=== PATIENT | female | born 1960 | race Hispanic/Latino ===

== ENCOUNTER 2018-09-18 13:23 | Emergency (ER) | payer OTHER ==
--- NOTE | 2018-09-18 19:21 | RAD REPORT ---
EXAM DESCRIPTION: CT - Head Brain Wo Cont - 09/18/2018 7:07 pm CLINICAL HISTORY: Headache COMPARISON: November 2009 TECHNIQUE: Axial 5 mm thick images of the head were obtained without IV contrast. All CT scans are performed using dose optimization technique as appropriate and may include automated exposure control or mA/KV adjustment according to patient size. FINDINGS: No intracranial hemorrhage, mass, edema or shift of mid-line structures. No acute infarcti on changes seen. No abnormal extra-axial fluid collections. Ventricles are normal. 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 These are stable. Mastoid air cells and visualized portions of the paranasal sinuses are clear. No acute bony findings. IMPRESSION: Negative non-contrast CT head examination for acute finding. No significant change from 2009.
[2018-09-18] MEDS ORDERED: DIPHENHYDRAMINE 50 MG/ML VIAL ONE (19:44)
[2018-09-18] MEDS ORDERED: KETOROLAC 30 MG/ML INJ ONE (19:44)
[2018-09-18] MEDS ORDERED: METOCLOPRAMIDE 10 MG/2mL INJ ONE (19:44)
[2018-09-18] MEDS ORDERED: NA CHLORIDE 0.9% 1,000 ML ONE (19:44)
--- NOTE | 2018-09-18 20:29 | ER ---
Nurse's Notes [facility] Name: Jo Tena Age: 57 yrs Sex: Female : 1960 Arrival Date: 09/18/2018 Time: 13:27 Bed 23 Private MD: None, None Diagnosis: Migraine Presentation: 09/18 13:41 Presenting complaint: Patient states: nausea and headache x 3-4 days. pt reports that ss medication helps "a little", but not much. Transition of care: patient was not received from another setting of care. Onset of symptoms was September 15, 2018. Risk Assessment: Do you want to hurt yourself or someone else? Patient reports no desire to harm self or others. Initial Sepsis Screen: Does the patient meet any 2 criteria? No. Patient's initial sepsis screen is negative. Does the patient have a suspected source of infection? No. Patient's initial sepsis screen is negative. Care prior to arrival: None. 13:41 Method Of Arrival: Ambulatory ss 13:41 Acuity: DANE 3 ss Historical: - Allergies: 13:42 No Known Allergies; ss - PMHx: 13:42 GERD; High Cholesterol; Hypertension; ss - Immunization history:: Adult Immunizations up to date. - Social history:: Smoking status: Patient uses tobacco products, < 1/2 ppd. - Ebola Screening: : Patient denies exposure to infectious person Patient denies travel to an Ebola-affected area in the 21 days before illness onset. Assessment: 19:30 General: Appears in no apparent distress. comfortable, Behavior is calm, cooperative, fu Reports nausea and headache 3-4 days ago. Pain: Denies pain. Neuro: Level of Consciousness is awake, alert, obeys commands, Oriented to person, place, time, situation. Respiratory: No deficits noted. Derm: Skin is intact, is healthy with good turgor, Skin is pink, warm \\T\\ dry. Musculoskeletal: No deficits noted. 20:29 Reassessment: Patient is alert, oriented x 3, equal unlabored respirations, skin fu warm/dry/pink. Pain: Denies pain. Neuro: Level of Consciousness is awake, alert, obeys commands, Oriented to person, place, time, situation. Respiratory: No deficits noted. Vital Signs: 13:40 Pulse 82; Resp 16; Temp 97.4(TE); Pulse Ox 99% on R/A; Weight 63.96 kg; Height 5 ft. 5 ss in. (165.10 cm); Pain 8/10; 13:42 BP 167 / 107; ss 19:45 BP 149 / 90; Pulse 70; Temp 98.1; Pulse Ox 100% ; Pain 0/10; fu 20:30 BP 156 / 87; Pulse 59; Temp 98.0; Pulse Ox 100% ; Pain 0/10; fu 21:00 BP 166 / 98; Pulse 66; Pulse Ox 100% on R/A; Pain 0/10; fu 13:40 Body Mass Index 23.46 (63.96 kg, 165.10 cm) ss Alyssa Coma Score: 18:54 Eye Response: spontaneous(4). Verbal Response: oriented(5). Motor Response: obeys kb commands(6). Total: 15. ED Course: 13:27 Patient arrived in ED. mr 13:28 None, None is Private Physician. mr 13:40 Arm band placed on left wrist. ss 13:42 Triage completed. ss 18:24 Charli Mccann LVN is Primary Nurse. em 18:36 [facility] kb 18:36 Dusty Neumann MD is Attending Physician. kb 19:04 CT completed. Patient tolerated procedure well. Patient moved to CT via wheelchair. jg6 Patient moved back from CT. 19:05 CT Head Brain wo Cont In Process Unspecified. EDMS 19:40 Inserted saline lock: 20 gauge in left antecubital area, using aseptic technique. fu 19:43 Keegan Gonzalez, RN is Primary Nurse. fu 20:50 IV discontinued, bleeding controlled. fu Administered Medications: 19:40 Drug: NS 0.9% 1000 ml Route: IV; Rate: 1000 ml; Site: left antecubital; fu 19:43 Drug: Reglan 10 mg Route: IVP; Site: left antecubital; fu 19:43 Drug: Benadryl 12.5 mg Route: IVP; Site: left antecubital; fu 19:43 Drug: TORadol 30 mg Route: IVP; Site: left antecubital; fu Outcome: 20:28 Discharge ordered by . kb 21:04 Discharged to home ambulatory. fu 21:04 Condition: improved 21:04 Discharge instructions given to patient, Instructed on discharge instructions, follow up and referral plans. Demonstrated understanding of instructions. 21:13 Patient left the ED. ea Signatures: Dispatcher [employer] EDBerna Avendano, STOVE FITTER-Sofía STOVE FITTER-Leni Genie Saenz, Charli, LICENSED PLUMBER LICENSED PLUMBER Lyudmila Ceja, RN Elena Mccloud RN Keegan Kim ea, RN RN fu Garcia, Jessica j6 Corrections: (The following items were deleted from the chart) 20:09 20:08 General: Appears in no apparent distress. comfortable, Behavior is calm, fu cooperative, fu
--- NOTE | 2018-09-18 20:29 | EDPHYS ---
Physician Documentation [facility] Name: Jo Tena Age: 57 yrs Sex: Female : 1960 Arrival Date: 09/18/2018 Time: 13:27 Bed 23 Private MD: None, None ED Physician Dusty Neumann HPI: 09/18 18:55 This 57 yrs old Female presents to ER via Ambulatory with complaints of kb Headache, Nausea. 18:55 The patient complains of pain to the right faith. The patient describes the headache kb as constant. Onset: The symptoms/episode began/occurred 3 day(s) ago. Associated signs and symptoms: Pertinent positives:. 20:27 Severity of symptoms: At its worst the pain was moderate, in the emergency department kb the pain is unchanged. Headache History: The patient has had previous headaches and this one is similar to previous episodes. The symptoms are alleviated by nothing. the symptoms are aggravated by lights. The patient has experienced similar episodes in the past, several times. The patient has not recently seen a physician. Pt reports headache to right side of head that started 3 days ago. +nausea. Reports similar headaches in the past, once or twice a week. Historical: - Allergies: 13:42 No Known Allergies; ss - PMHx: 13:42 GERD; High Cholesterol; Hypertension; ss - Immunization history:: Adult Immunizations up to date. - Social history:: Smoking status: Patient uses tobacco products, < 1/2 ppd. - Ebola Screening: : Patient denies exposure to infectious person Patient denies travel to an Ebola-affected area in the 21 days before illness onset. ROS: 18:54 Constitutional: Negative for fever, chills, and weight loss, Cardiovascular: Negative kb for chest pain, palpitations, and edema, Respiratory: Negative for shortness of breath, cough, wheezing, and pleuritic chest pain, Back: Negative for injury and pain, : Negative for injury, bleeding, discharge, and swelling, MS/Extremity: Negative for injury and deformity, Skin: Negative for injury, rash, and discoloration. 18:54 Abdomen/GI: Positive for nausea, Negative for abdominal pain, vomiting, diarrhea, constipation. 18:54 Neuro: Positive for headache. Exam: 18:55 Constitutional: This is a well developed, well nourished patient who is awake, alert, kb and in no acute distress. Head/Face: Normocephalic, atraumatic. ENT: Nares patent. No nasal discharge, no septal abnormalities noted. Tympanic membranes are normal and external auditory canals are clear. Oropharynx with no redness, swelling, or masses, exudates, or evidence of obstruction, uvula midline. Mucous membranes moist. Neck: Trachea midline, no thyromegaly or masses palpated, and no cervical lymphadenopathy. Supple, full range of motion without nuchal rigidity, or vertebral point tenderness. No Meningismus. Chest/axilla: Normal chest wall appearance and motion. Nontender with no deformity. No lesions are appreciated. Cardiovascular: Regular rate and rhythm with a normal S1 and S2. No gallops, murmurs, or rubs. Normal PMI, no JVD. No pulse deficits. Respiratory: Lungs have equal breath sounds bilaterally, clear to auscultation and percussion. No rales, rhonchi or wheezes noted. No increased work of breathing, no retractions or nasal flaring. Abdomen/GI: Soft, non-tender, with normal bowel sounds. No distension or tympany. No guarding or rebound. No evidence of tenderness throughout. Back: No spinal tenderness. No costovertebral tenderness. Full range of motion. Skin: Warm, dry with normal turgor. Normal color with no rashes, no lesions, and no evidence of cellulitis. MS/ Extremity: Pulses equal, no cyanosis. Neurovascular intact. Full, normal range of motion. Neuro: Awake and alert, GCS 15, oriented to person, place, time, and situation. Cranial nerves II-XII grossly intact. Motor strength 5/5 in all extremities. Sensory grossly intact. Cerebellar exam normal. Normal gait. Vital Signs: 13:40 Pulse 82; Resp 16; Temp 97.4(TE); Pulse Ox 99% on R/A; Weight 63.96 kg; Height 5 ft. 5 ss in. (165.10 cm); Pain 8/10; 13:42 BP 167 / 107; ss 19:45 BP 149 / 90; Pulse 70; Temp 98.1; Pulse Ox 100% ; Pain 0/10; fu 20:30 BP 156 / 87; Pulse 59; Temp 98.0; Pulse Ox 100% ; Pain 0/10; fu 21:00 BP 166 / 98; Pulse 66; Pulse Ox 100% on R/A; Pain 0/10; fu 13:40 Body Mass Index 23.46 (63.96 kg, 165.10 cm) ss [place] Coma Score: 18:54 Eye Response: spontaneous(4). Verbal Response: oriented(5). Motor Response: obeys kb commands(6). Total: 15. MDM: 18:36 Patient medically screened. kb 18:54 Data reviewed: vital signs, nurses notes. Data interpreted: Pulse oximetry: on room air kb is 99 %. Interpretation: normal. 20:27 Counseling: I had a detailed discussion with the patient and/or guardian regarding: the kb historical points, exam findings, and any diagnostic results supporting the discharge/admit diagnosis, radiology results, the need for outpatient follow up, a family practitioner, a neurologist, to return to the emergency department if symptoms worsen or persist or if there are any questions or concerns that arise at home. 20:29 ED course: Pt pain free after treatment. kb 09/18 18:40 Order name: CT Head Brain wo Cont; Complete Time: 19:23 kb 09/18 18:40 Order name: IV Start; Complete Time: 19:30 kb Administered Medications: 19:40 Drug: NS 0.9% 1000 ml Route: IV; Rate: 1000 ml; Site: left antecubital; fu 19:43 Drug: Reglan 10 mg Route: IVP; Site: left antecubital; fu 19:43 Drug: Benadryl 12.5 mg Route: IVP; Site: left antecubital; fu 19:43 Drug: TORadol 30 mg Route: IVP; Site: left antecubital; fu Disposition: 09/19 06:18 Co-signature as Attending Physician, Dusty Neumann MD I agree with the assessment and valeri plan of care. Disposition: 09/18/18 20:28 Discharged to Home. Impression: Migraine. - Condition is Stable. - Discharge Instructions: Migraine Headache, [id number]. - Medication Reconciliation Form, Thank You Letter, Antibiotic Education, Prescription Opioid Use form. - Follow up: Private Physician; When: 2 - 3 days; Reason: Recheck today's complaints, Continuance of care, Re-evaluation by your physician. Follow up: Emergency Department; When: As needed; Reason: Worsening of condition. Signatures: [facility]patcher [facility], Berna, SIEBEL CRM DEVELOPER-C SIEBEL CRM DEVELOPER-Dusty Almendarez MD MD cha Smirch, Shelby, RN RN Elena Sneed, Keegan Kim RN, ea, MEREDITH kay Corrections: (The following items were deleted from the chart) 09/18 21:13 20:28 09/18/2018 20:28 Discharged to Home. Impression: Migraine. Condition is Stable. ea Forms are Medication Reconciliation Form, Thank You Letter, Antibiotic Education, Prescription Opioid Use. Follow up: Private Physician; When: 2 - 3 days; Reason: Recheck today's complaints, Continuance of care, Re-evaluation by your physician. Follow up: Emergency Department; When: As needed; Reason: Worsening of condition. kb
[2018-09-18 21:31] VITALS: O2SAT 100
[2018-09-18 21:33] VITALS: TEMP 98
[2018-09-18 21:34] VITALS: BP 166/98
== END 2018-09-18 21:13 | disposition home or self-care (01) ==
LOC: ER 13:23
DX: G43.909 Migraine, unspecified, not intractable, without status migrainosus (principal); K21.9 Gastro-esophageal reflux disease without esophagitis; E78.00 Pure hypercholesterolemia, unspecified; I10 Essential (primary) hypertension; F17.200 Nicotine dependence, unspecified, uncomplicated
CPT/HCPCS: 70450; 96374; 96375; 99284; J2765; J7030

== ENCOUNTER 2019-09-20 10:16 | Emergency (ER) | payer OTHER ==
[2019-09-20] MEDS ORDERED: METOCLOPRAMIDE 10 MG/2mL INJ ONE (12:26)
[2019-09-20] MEDS ORDERED: KETOROLAC 30 MG/ML INJ ONE (12:27)
[2019-09-20] MEDS ORDERED: NA CHLORIDE 0.9% 50 ML IV ONE (12:27)
[2019-09-20] MEDS ORDERED: NA CHLORIDE 0.9% 500 ML ONE (12:28)
[2019-09-20] MEDS ORDERED: DIPHENHYDRAMINE 50 MG/ML VIAL ONE (12:28)
--- NOTE | 2019-09-20 14:15 | ER ---
Nurse's Notes [facility] Name: Jo Tena Age: 58 yrs Sex: Female : 1960 Arrival Date: 09/20/2019 Time: 10:20 Bed 27 Private MD: Diagnosis: Headache Presentation: 09/19 10:37 Chief complaint: Patient states: Coughing, N/V and OJEDA since last night, denies fever. [facility] Coronavirus screen: The patient has NOT traveled to a country currently being monitored by the [facility] within the last 14 days. Proceed with normal triage procedures. Ebola Screen: No symptoms or risks identified at this time. Initial Sepsis Screen: Does the patient meet any 2 criteria? No. Patient's initial sepsis screen is negative. Does the patient have a suspected source of infection? No. Patient's initial sepsis screen is negative. Risk Assessment: Do you want to hurt yourself or someone else? Patient reports no desire to harm self or others. Onset of symptoms was September 19, 2019. Care prior to arrival: None. 10:37 Method Of Arrival: Ambulatory [facility] 10:37 Acuity: DANE 3 [facility] Triage Assessment: 10:40 Headache History: The patient has had previous headaches and this one is similar to 7 previous episodes. General: Appears in no apparent distress. uncomfortable, Behavior is calm, cooperative, appropriate for age. Pain: Complains of pain in OJEDA Pain currently is 9 out of 10 on a pain scale. Quality of pain is described as throbbing, Pain began 1 day ago. Is continuous, Also complains of nausea. Neuro: Level of Consciousness is awake, alert, obeys commands. Cardiovascular: Patient's skin is warm and dry. Respiratory: Airway is patent Respiratory effort is even, unlabored, Respiratory pattern is regular, symmetrical. GI: Reports nausea. Derm: Skin is pink, warm \T\ dry. Historical: - Allergies: 10:40 No Known Allergies; jl7 - Home Meds: 10:40 Lisinopril Oral [Active]; jl7 - PMHx: 10:40 GERD; High Cholesterol; Hypertension; jl7 - Immunization history:: Adult Immunizations not up to date. - Social history:: Smoking status: Patient reports the use of cigarette tobacco products, 2 cigarettes/day. Screenin:00 Abuse screen: Denies threats or abuse. Nutritional screening: No deficits noted. vc Tuberculosis screening: No symptoms or risk factors identified. Fall Risk None identified. Assessment: 12:10 General: Appears in no apparent distress. uncomfortable, ill, Behavior is calm, vc cooperative, appropriate for age. Pain: Complains of pain in right adventism and forehead. Neuro: Level of Consciousness is awake, alert, obeys commands, Oriented to person, place, time, situation, Appropriate for age. Cardiovascular: Capillary refill < 3 seconds Patient's skin is warm and dry. Respiratory: Airway is patent Respiratory effort is even, unlabored, Respiratory pattern is regular, symmetrical. GI: Reports lower abdominal pain, nausea, vomiting. : No signs and/or symptoms were reported regarding the genitourinary system. EENT: No signs and/or symptoms were reported regarding the EENT system. Derm: Skin is intact, is healthy with good turgor, Skin temperature is warm. 13:10 Reassessment: Patient and/or family updated on plan of care and expected duration. Pain vc level reassessed. Patient states feeling better. Patient states symptoms have improved. Vital Signs: 10:37 BP 154 / 104; Pulse 89; Resp 17 S; Temp 98.6(O); Pulse Ox 97% on R/A; Weight 63.96 kg jl7 (R); Pain 9/10; 12:15 BP 149 / 93; Pulse 81; Resp 18; Pulse Ox 100% on R/A; vc 13:15 BP 141 / 87; Pulse 74; Resp 17; Pulse Ox 100% on R/A; vc ED Course: 10:20 Patient arrived in ED. ag5 10:39 Triage completed. jl7 10:40 Arm band placed on right wrist. Patient placed in waiting room, Patient notified of jl7 wait time. 11:53 Duke Mcdowell FNP-C is PHCP. la1 11:53 Sacha Negron MD is Attending Physician. la1 11:54 Suzette Ocampo RN is Primary Nurse. vc 12:06 Duke Mcdowell FNP-C is PHCP. la1 12:10 Patient has correct armband on for positive identification. Bed in low position. Call vc light in reach. Pulse ox on. NIBP on. 12:13 Inserted saline lock: 20 gauge 22 gauge in left antecubital area, using aseptic vc technique. 12:16 Flu Sent. vc 13:29 No provider procedures requiring assistance completed. vc 13:50 IV discontinued, intact, bleeding controlled, No redness/swelling at site. Pressure vc dressing applied. Administered Medications: 12:31 Drug: Benadryl 12.5 mg Route: IVP; Site: left antecubital; vc 13:33 Follow up: Response: No adverse reaction; Pain is decreased vc 12:31 Drug: Reglan 10 mg Route: IVP; Site: left antecubital; vc 13:32 Follow up: Response: No adverse reaction; Pain is decreased vc 12:32 Drug: NS 0.9% 500 ml Route: IV; Rate: bolus; Site: left antecubital; vc 13:33 Follow up: IV Status: Completed infusion; IV Intake: 500ml vc 12:32 Drug: TORadol - Ketorolac 15 mg Route: IVP; Site: left antecubital; vc 13:33 Follow up: Response: No adverse reaction; Pain is decreased vc Intake: 13:33 IV: 500ml; Total: 500ml. vc Outcome: 13:15 Discharge ordered by MD. chaves 13:50 Discharged to home ambulatory. vc 13:50 Condition: improved 13:50 Discharge instructions given to patient, Instructed on discharge instructions, follow up and referral plans. Demonstrated understanding of instructions, follow-up care. 13:50 Patient left the ED. vc Signatures: Duke Mcdowell, SAP PP CONSULTANT-C SAP PP CONSULTANT-Cla1 Carli Booth RN RN jl7 Gaskin, Ajare Suzette Major RN RN vc
--- NOTE | 2019-09-20 14:16 | EDPHYS ---
Physician Documentation [facility] Name: Jo Tena Age: 58 yrs Sex: Female : 1960 Arrival Date: 09/20/2019 Time: 10:20 Bed 27 Private MD: ED Physician Sacha Negron HPI: 09/19 12:22 This 58 yrs old Female presents to ER via Ambulatory with complaints of la1 Headache, Flu Symptoms. 12:22 The patient complains of pain to the forehead and right muslim. The patient describes la1 the headache as throbbing. Onset: The symptoms/episode began/occurred last night. Associated signs and symptoms: Pertinent positives: nausea, vomiting, Pertinent negatives: altered mental status, dizziness, neck stiffness, Photophobia sinus congestion. Severity of symptoms: At its worst the pain was moderate. Headache History: The patient has had previous headaches and this one is similar to previous episodes. The patient has experienced similar episodes in the past, several times. Historical: - Allergies: 10:40 No Known Allergies; jl7 - Home Meds: 10:40 Lisinopril Oral [Active]; jl7 - PMHx: 10:40 GERD; High Cholesterol; Hypertension; jl7 - Immunization history:: Adult Immunizations not up to date. - Social history:: Smoking status: Patient reports the use of cigarette tobacco products, 2 cigarettes/day. ROS: 12:23 Constitutional: Negative for fever, chills, and weight loss, Eyes: Negative for injury, la1 pain, redness, and discharge, ENT: Negative for injury, pain, and discharge, Neck: Negative for injury, pain, and swelling, Cardiovascular: Negative for chest pain, palpitations, and edema, Respiratory: Negative for shortness of breath, cough, wheezing, and pleuritic chest pain. 12:23 Back: Negative for injury and pain, : Negative for injury, bleeding, discharge, and swelling, MS/Extremity: Negative for injury and deformity, Skin: Negative for injury, rash, and discoloration. 12:23 Abdomen/GI: Positive for nausea, vomiting. 12:23 Neuro: Positive for headache. Exam: 12:24 Constitutional: This is a well developed, well nourished patient who is awake, alert, la1 and in no acute distress. Head/Face: Normocephalic, atraumatic. Eyes: Pupils equal round and reactive to light, extra-ocular motions intact. Lids and lashes normal. Conjunctiva and sclera are non-icteric and not injected. Cornea within normal limits. Periorbital areas with no swelling, redness, or edema. ENT: Nares patent. No nasal discharge, no septal abnormalities noted. Tympanic membranes are normal and external auditory canals are clear. Oropharynx with no redness, swelling, or masses, exudates, or evidence of obstruction, uvula midline. Mucous membranes moist. Neck: Trachea midlineSupple, full range of motion without nuchal rigidity, or vertebral point tenderness. No Meningismus. Chest/axilla: Normal chest wall appearance and motion. Nontender with no deformity Cardiovascular: Regular rate and rhythm with a normal S1 and S2. Respiratory: Lungs have equal breath sounds bilaterally, clear to auscultation Abdomen/GI: Soft, non-tender, with normal bowel sounds. No distension or tympany. No guarding or rebound. No evidence of tenderness throughout. MS/ Extremity: Pulses equal, no cyanosis. Neurovascular intact. Full, normal range of motion. 12:24 Neuro: Orientation: is normal, to person, place, time \T\ situation. Mentation: is normal, lucid, able to follow commands, Memory: is normal, Cranial nerves: CN II- XII are normal as tested, visual cortés are intact. extraocular movements are intact, Facial palsy and sensory deficits are absent. Nystagmus is absent. Speech is clear and appropriate. Cerebellar function: no acute changes, normal finger to nose testing, heel to sky testing is normal, Motor: is normal, strength is normal, strength is 5/5 in all extremities, Sensation: is normal, Gait: is steady, Abnormal movements: there are no abnormal movements. Vital Signs: 10:37 BP 154 / 104; Pulse 89; Resp 17 S; Temp 98.6(O); Pulse Ox 97% on R/A; Weight 63.96 kg jl7 (R); Pain 9/10; 12:15 BP 149 / 93; Pulse 81; Resp 18; Pulse Ox 100% on R/A; vc 13:15 BP 141 / 87; Pulse 74; Resp 17; Pulse Ox 100% on R/A; vc MDM: 12:06 Patient medically screened. la1 13:14 Differential diagnosis: herpes zoster, hypertensive headache, migraine, sinusitis, la1 temporal arteritis, tension headache. Data reviewed: vital signs, nurses notes, lab test result(s), and as a result, I will discharge patient. Data interpreted: Pulse oximetry: on room air is 97 %. Interpretation: normal. Counseling: I had a detailed discussion with the patient and/or guardian regarding: the historical points, exam findings, and any diagnostic results supporting the discharge/admit diagnosis, lab results, the need for outpatient follow up, a family practitioner, to return to the emergency department if symptoms worsen or persist or if there are any questions or concerns that arise at home. Medication response: Toradol relieved patient's pain. The symptoms have resolved. Response to treatment: the patient is now symptom free, and as a result, I will discharge patient. Special discussion: Based on the patient's history, exam and DX evaluation, there is no indication for emergent intervention or inpatient TX. It is understood by the patient/guardian that if the SXs persist or worsen they need to return immediately for re-evaluation. 09/19 12:05 Order name: Flu la1 09/19 12:05 Order name: IV; Complete Time: 12:15 la1 Administered Medications: 12:31 Drug: Benadryl 12.5 mg Route: IVP; Site: left antecubital; vc 13:33 Follow up: Response: No adverse reaction; Pain is decreased vc 12:31 Drug: Reglan 10 mg Route: IVP; Site: left antecubital; vc 13:32 Follow up: Response: No adverse reaction; Pain is decreased vc 12:32 Drug: NS 0.9% 500 ml Route: IV; Rate: bolus; Site: left antecubital; vc 13:33 Follow up: IV Status: Completed infusion; IV Intake: 500ml vc 12:32 Drug: TORadol - Ketorolac 15 mg Route: IVP; Site: left antecubital; vc 13:33 Follow up: Response: No adverse reaction; Pain is decreased vc Disposition: 17:21 Co-signature as Attending Physician, Sacha Negron MD I agree with the assessment and kdr plan of care. Disposition: 09/20/19 13:15 Discharged to Home. Impression: Headache. - Condition is Stable. - Discharge Instructions: General Headache Without Cause. - Medication Reconciliation Form, Thank You Letter form. - Follow up: Private Physician; When: As needed; Reason: Recheck today's complaints, Continuance of care, Re-evaluation by your physician. - Problem is new. - Symptoms have improved. Signatures: Dispatcher [employer] EDMS Sacha Negron MD MD kdr [facility]owell, ACID CHANGER-C ACID CHANGER-Cla1 Carli Booth RN RN jl7 Suzette Ocampo RN RN vc Corrections: (The following items were deleted from the chart) 13:50 13:15 09/20/2019 13:15 Discharged to Home. Impression: Headache. Condition is Stable. vc Forms are Medication Reconciliation Form, Thank You Letter, Antibiotic Education, Prescription Opioid Use. Follow up: Private Physician; When: As needed; Reason: Recheck today's complaints, Continuance of care, Re-evaluation by your physician. Problem is new. Symptoms have improved. la1
[2019-09-20 14:40] VITALS: TEMP 98.6
[2019-09-20 14:42] VITALS: O2SAT 100
[2019-09-20 14:44] VITALS: BP 141/87
== END 2019-09-20 13:50 | disposition home or self-care (01) ==
LOC: ER 10:16
DX: R51 Headache (principal); I10 Essential (primary) hypertension; F17.210 Nicotine dependence, cigarettes, uncomplicated
CPT/HCPCS: 96361; 87804 ×2; 96375; 96374; 99284; J2765; J1200; J7040

== ENCOUNTER 2021-07-26 16:35 | Emergency (ER) | payer OTHER ==
[2021-07-26 18:23] LABS: SARS-COV-2 RT PCR NEGATIVE (NEGATIVE)
--- NOTE | 2021-07-26 18:46 | EDPHYS ---
[facility] Name: Jo Tena Age: 60 yrs Sex: Female : 1960 Arrival Date: 07/26/2021 Time: 16:41 Bed 10 Private MD: ED Physician Sacha Negron HPI: 07/26 18:51 This 60 yrs old Female presents to ER via Ambulatory with complaints of kdr Headache, Back Pain. 18:51 Patient has had general flulike symptoms for the past 2 days including headache back kdr pain muscle pain and joint pain. She denies fever.. Onset: The symptoms/episode began/occurred gradually, 2 day(s) ago. Severity of symptoms: At their worst the symptoms were mild moderate just prior to arrival, in the emergency department the symptoms. The patient has not experienced similar symptoms in the past. The patient has not recently seen a physician. Historical: - PMHx: 16:54 GERD; High Cholesterol; Hypertension; jh5 - Immunization history:: Adult Immunizations up to date. - Social history:: Smoking status: Patient reports the use of cigarette tobacco products, smokes one pack cigarettes per day. ROS: 18:51 Constitutional: Negative for fever, chills, and weight loss, Eyes: Negative for injury, kdr pain, redness, and discharge, ENT: Negative for injury, pain, and discharge, Neck: Negative for injury, pain, and swelling, Cardiovascular: Negative for chest pain, palpitations, and edema, : Negative for injury, bleeding, discharge, and swelling, MS/Extremity: Negative for injury and deformity, Skin: Negative for injury, rash, and discoloration, Neuro: Negative for headache, weakness, numbness, tingling, and seizure activity. Psych: Negative for depression, anxiety, suicide ideation, homicidal ideation, and hallucinations, Allergy/Immunology: Negative for hives, rash, and allergies, Endocrine: Negative for neck swelling, polydipsia, polyuria, polyphagia, and marked weight changes, Hematologic/Lymphatic: Negative for swollen nodes, abnormal bleeding, and unusual bruising. 18:51 Respiratory: Positive for cough, with no reported sputum, Negative for dyspnea on exertion, hemoptysis, orthopnea, pleurisy, shortness of breath, sputum production, wheezing. 18:51 Abdomen/GI: Positive for abdominal pain, nausea, abdominal cramps. 18:51 Back: Positive for pain at rest, pain with movement, Generalized myalgias. Exam: 18:51 Constitutional: This is a well developed, well nourished patient who is awake, alert, kdr and in no acute distress. Head/Face: Normocephalic, atraumatic. Eyes: Pupils equal round and reactive to light, extra-ocular motions intact. Lids and lashes normal. Conjunctiva and sclera are non-icteric and not injected. Cornea within normal limits. Periorbital areas with no swelling, redness, or edema. Neck: Trachea midline, no thyromegaly or masses palpated, and no cervical lymphadenopathy. Supple, full range of motion without nuchal rigidity, or vertebral point tenderness. No Meningismus. Chest/axilla: Normal chest wall appearance and motion. Nontender with no deformity. No lesions are appreciated. Cardiovascular: Regular rate and rhythm with a normal S1 and S2. No gallops, murmurs, or rubs. Normal PMI, no JVD. No pulse deficits. Respiratory: Lungs have equal breath sounds bilaterally, clear to auscultation and percussion. No rales, rhonchi or wheezes noted. No increased work of breathing, no retractions or nasal flaring. Abdomen/GI: Soft, non-tender, with normal bowel sounds. No distension or tympany. No guarding or rebound. No evidence of tenderness throughout. Back: No spinal tenderness. No costovertebral tenderness. Full range of motion. Skin: Warm, dry with normal turgor. Normal color with no rashes, no lesions, and no evidence of cellulitis. MS/ Extremity: Pulses equal, no cyanosis. Neurovascular intact. Full, normal range of motion. Neuro: Awake and alert, GCS 15, oriented to person, place, time, and situation. Cranial nerves II-XII grossly intact. Motor strength 5/5 in all extremities. Sensory grossly intact. Cerebellar exam normal. Normal gait. Psych: Awake, alert, with orientation to person, place and time. Behavior, mood, and affect are within normal limits. Vital Signs: 16:49 BP 165 / 114; Pulse 88; Resp 16; Temp 98.7; Pulse Ox 100% ; Weight 61.69 kg; Height 5 jh5 ft. 4 in. (162.56 cm); 19:09 BP 149 / 76; Pulse 80; Resp 16; Pulse Ox 99% on R/A; ab2 16:49 Body Mass Index 23.34 (61.69 kg, 162.56 cm) [facility] MDM: 18:45 Patient medically screened. kdr 18:51 Data reviewed: vital signs, nurses notes, lab test result(s), radiologic studies. kdr Counseling: I had a detailed discussion with the patient and/or guardian regarding: the historical points, exam findings, and any diagnostic results supporting the discharge/admit diagnosis, lab results, radiology results, the need for outpatient follow up. 07/26 16:57 Order name: COVID-19/FLU A+B (Document "Date of Onset" if Symptomatic); Complete Time: [facility] 18:40 Administered Medications: 19:09 Drug: Tylenol 650 mg Route: PO; ab2 19:10 Follow up: Response: No adverse reaction ab2 19:09 Drug: Motrin (ibuprofen) 600 mg Route: PO; ab2 19:10 Follow up: Response: No adverse reaction ab2 Disposition Summary: 07/26/21 18:45 Discharge Ordered Location: Home kdr Problem: new kdr Symptoms: have improved kdr Condition: Stable kdr Diagnosis - Influenza due to identified novel influenza A virus with other respiratory kdr manifestations - Viral intestinal infection, unspecified kdr - Headache kdr Followup: kdr - With: Private Physician - When: 2 - 3 days - Reason: If symptoms return, Further diagnostic work-up, Recheck today's complaints, Continuance of care, Re-evaluation by your physician Discharge Instructions: - Discharge Summary Sheet kdr - General Headache Without Cause kdr - Influenza, Adult, [id number] kdr - Viral Respiratory Infection, [id number] kdr Forms: - Medication Reconciliation Form kdr - Thank You Letter kdr - Work release form iw Prescriptions: - Tamiflu 75 mg Oral Capsule - take 1 tablet by ORAL route every 12 hours for 5 days; 10 tablet; Refills: 0, kdr Product Selection Permitted Signatures: Dispatcher [employer] Sacha Zabala MD MD kdr Barbara Valenzuela RN RN [facility] Zeke Archer ab2
--- NOTE | 2021-07-26 18:46 | ER ---
Nurse's Notes [facility] Name: Jo Tena Age: 60 yrs Sex: Female : 1960 Arrival Date: 07/26/2021 Time: 16:41 Bed 10 Private MD: Diagnosis: Influenza due to identified novel influenza A virus with other respiratory manifestations;Viral intestinal infection, unspecified;Headache Presentation: 07/26 16:49 Chief complaint: Patient states: across the room; pt is able to ambulate independently [facility] without assisstance. Pt states; she has upper back pain, cough, sore throat, headache since 2 days; Pt is supposed to HTN meds but has been out for 2 weeks. Coronavirus screen: Vaccine status: Patient reports receiving the 2nd dose of the covid vaccine. Client denies travel out of the [place] in the last 14 days. Client presents with at least one sign or symptom that may indicate coronavirus-19. Standard/surgical mask placed on the client. Ebola Screen: Patient negative for fever greater than or equal to 101.5 degrees Fahrenheit, and additional compatible Ebola Virus Disease symptoms Patient denies exposure to infectious person. Patient denies travel to an Ebola-affected area in the 21 days before illness onset. Initial Sepsis Screen: Does the patient meet any 2 criteria? No. Patient's initial sepsis screen is negative. Does the patient have a suspected source of infection? No. Patient's initial sepsis screen is negative. Risk Assessment: Do you want to hurt yourself or someone else? Patient reports no desire to harm self or others. Onset of symptoms. 16:49 Method Of Arrival: Ambulatory [facility] 16:49 Acuity: DANE 3 [facility] Triage Assessment: 16:54 Headache History: The patient has had previous headaches and this one is similar to [facility] previous episodes. General: Appears in no apparent distress. comfortable, slender, well groomed, well developed, well nourished, Behavior is calm, cooperative, appropriate for age. Pain: Complains of pain in headache Pain currently is 10 out of 10 on a pain scale. Pain began gradually. Pain: Also complains of cough, chills, bodyaches. Neuro: Level of Consciousness is awake, alert, obeys commands, Oriented to person, place, time, situation, Appropriate for age [employer] are equal bilaterally Moves all extremities. Full function Gait is steady, Speech is normal, Facial symmetry appears normal, Pupils are PERRLA. Historical: - PMHx: 16:54 GERD; High Cholesterol; Hypertension; 5 - Immunization history:: Adult Immunizations up to date. - Social history:: Smoking status: Patient reports the use of cigarette tobacco products, smokes one pack cigarettes per day. Screenin:57 Abuse screen: Denies threats or abuse. Denies injuries from another. Nutritional [facility] screening: No deficits noted. Tuberculosis screening: No symptoms or risk factors identified. Fall Risk None identified. Assessment: 18:00 General: Appears Behavior is calm, cooperative. General: Reports feeling ill for iw fatigue for. Pain: Complains of pain in head. Neuro: Level of Consciousness is awake, alert, obeys commands, Oriented to person, place, time, Moves all extremities. Full function. Cardiovascular: Patient's skin is warm and dry. Respiratory: Respiratory effort is even, unlabored, Respiratory pattern is regular, symmetrical. Derm: Skin is intact, is healthy with good turgor. Musculoskeletal: Range of motion: intact in all extremities. Vital Signs: 16:49 BP 165 / 114; Pulse 88; Resp 16; Temp 98.7; Pulse Ox 100% ; Weight 61.69 kg; Height 5 [facility] ft. 4 in. (162.56 cm); 19:09 BP 149 / 76; Pulse 80; Resp 16; Pulse Ox 99% on R/A; ab2 16:49 Body Mass Index 23.34 (61.69 kg, 162.56 cm) [facility] ED Course: 16:41 Patient arrived in ED. mr 16:54 Triage completed. [facility] 16:54 Arm band placed on right wrist. [facility] 16:57 Patient has correct armband on for positive identification. 5 17:38 Sacha Negron MD is Attending Physician. kdr 18:39 No provider procedures requiring assistance completed. Patient did not have IV access [facility] during this emergency room visit. Administered Medications: 19:09 Drug: Tylenol 650 mg Route: PO; ab2 19:10 Follow up: Response: No adverse reaction ab2 19:09 Drug: Motrin (ibuprofen) 600 mg Route: PO; ab2 19:10 Follow up: Response: No adverse reaction ab2 Outcome: 18:45 Discharge ordered by . kdr 19:09 Discharged to home ambulatory. ab2 19:09 Condition: good 19:09 Discharge instructions given to patient, Instructed on discharge instructions, follow up and referral plans. medication usage, Demonstrated understanding of instructions, follow-up care, medications, Prescriptions given X 1. 19:10 Patient left the ED. ab2 Signatures: Sacha Negron MD MD kdr Rivera, Mary mr Gabi Yoo RN RN Barbara Valenzuela RN RN [facility] Zeke Archer2
[2021-07-26] MEDS ORDERED: ACETAMINOPHEN 325 MG TABLET ONE (19:05)
[2021-07-26] MEDS ORDERED: IBUPROFEN 200 MG TAB PO ONE (19:05)
[2021-07-26 19:17] VITALS: TEMP 98.7
[2021-07-26 19:19] VITALS: BP 149/76; O2SAT 99
== END 2021-07-26 19:10 | disposition home or self-care (01) ==
LOC: ER 16:35
DX: J09.X2 Influenza due to identified novel influenza A virus with other respiratory manifestations (principal); B34.9 Viral infection, unspecified; F17.210 Nicotine dependence, cigarettes, uncomplicated; Z20.822 Contact with and (suspected) exposure to COVID-19
CPT/HCPCS: 0240U; 99283

== ENCOUNTER 2022-09-10 06:13 | Emergency (ER) | payer OTHER ==
--- OUTSIDE RECORDS SUMMARY | 2022-09-10 06:33 | XMS REPORT | Continuity of Care Document ---
:1960 Author Organization [facility] t Address [address] [facility] [address] [place] [id number] Care Team Providers Name Role Phone Goldie Macdonald Primary Care Physician [phone] Problems This patient has no known problems. Allergies, Adverse Reactions, Alerts Allergy Allergy Status Severity Reaction(s) Onset Inactive Treating Comm ents Source Name Type Date Date Clinician Amna - Proprandee Active 2021- Intraven ty to 7-07 ous adverse 00:00: reaction 00 to drug Medications Ordered Filled Start Stop Current Ordering Indication Dosage Frequency Signature Comments Components Source Medication Medication Date Date Medication? Clinician (SIG) Name Name TAKE 1 2021-0 No 10 TABLET 7-07 DAILY. 00:00: 00 TAKE 1 2021-0 No 5 TABLET 7-07 DAILY. 00:00: 00 TAKE 1 2021-0 No 10 TABLET 7-07 DAILY. 00:00: 00 TAKE 1 2021-0 No 5 TABLET 7-07 DAILY. 00:00: 00 prednisone 2020-0 No 1mg 20 mg 9-08 tablet 00:00: 00 azithromyci 2020-0 No mg n 250 mg 9-08 tablet 00:00: 00 Dose 2020-0 No Unknown 9-08 00:00: 00 prednisone 1-0 No 1mg 20 mg 9-08 tablet 00:00: 00 azithromyci 1-0 No mg n 250 mg 9-08 tablet 00:00: 00 Bromfed DM 2020-0 No 5mg/5 2 mg-30 9-08 mL mg-10 mg/5 00:00: mL oral 00 syrup amlodipine 2020-0 No 1mg 5 mg tablet 5-12 00:00: 00 lisinopril 2020-0 No 1mg 10 mg 5-12 tablet 00:00: 00 fenofibrate 2020-0 No 1mg nanocrystal 5-12 lized 145 00:00: mg tablet 00 Dose 2020-0 No Unknown -12 00:00: 00 amlodipine 2020-0 No 1mg 5 mg tablet 5-12 00:00: 00 lisinopril 2020-0 No 1mg 10 mg 5-12 tablet 00:00: 00 fenofibrate 2020-0 No 1mg nanocrystal 5-12 lized 145 00:00: mg tablet 00 metformin 2020-0 No 1mg ER 500 mg 5-12 24 hr 00:00: tablet,exte 00 nded release (gastric) diclofenac 2019-1 No % 1 % topical 1-16 gel 00:00: 00 fenofibrate 2019-1 No 1mg nanocrystal 1-16 lized 145 00:00: mg tablet 00 lisinopril 2019-1 No 1mg 10 mg 1-16 tablet 00:00: 00 amlodipine 2019-1 No 1mg 5 mg tablet 1-16 00:00: 00 loratadine 2019-1 No 1mg 10 mg 1-16 tablet 00:00: 00 metformin 2019-1 No 1mg ER 500 mg 1-16 24 hr 00:00: tablet,exte 00 nded release (gastric) diclofenac 2019-1 No % 1 % topical 1-16 gel 00:00: 00 fenofibrate 2019-1 No 1mg nanocrystal 1-16 lized 145 00:00: mg tablet 00 lisinopril 2019-1 No 1mg 10 mg 1-16 tablet 00:00: 00 amlodipine 2019-1 No 1mg 5 mg tablet 1-16 00:00: 00 loratadine 2019-1 No 1mg 10 mg 1-16 tablet 00:00: 00 metformin 2019-1 No 1mg ER 500 mg 1-16 24 hr 00:00: tablet,exte 00 nded release (gastric) fenofibrate 2019-0 No 1mg nanocrystal 8-26 lized 145 00:00: mg tablet 00 lisinopril 2019-0 No 1mg 10 mg 8-26 tablet 00:00: 00 amlodipine 2019-0 No 1mg 5 mg tablet 8-26 00:00: 00 fenofibrate 2019-0 No 1mg nanocrystal 8-26 lized 145 00:00: mg tablet 00 lisinopril 2020-0 No 1mg 10 mg 8-26 tablet 00:00: 00 amlodipine 2020-0 No 1mg 5 mg tablet 8 00:00: 00 metformin 2020-0 No 1mg ER 500 mg 2-18 24 hr 00:00: tablet,exte 00 nded release (gastric) metformin 2020-0 No 1mg ER 500 mg 2-18 24 hr 00:00: tablet,exte 00 nded release (gastric) amoxicillin 2020-0 No 1mg 500 mg 2-17 capsule 00:00: 00 amoxicillin 2020-0 No 1mg 500 mg 2-17 capsule 00:00: 00 diclofenac 2020-0 No % 1 % topical 2-12 gel 00:00: 00 fenofibrate 2020-0 No 1mg nanocrystal 2-12 lized 145 00:00: mg tablet 00 lisinopril 2020-0 No 1mg 10 mg 2-12 tablet 00:00: 00 amlodipine 2020-0 No 1mg 5 mg tablet 2-12 00:00: 00 diclofenac 2020-0 No % 1 % topical 2-12 gel 00:00: 00 fenofibrate 2020-0 No 1mg nanocrystal 2-12 lized 145 00:00: mg tablet 00 lisinopril 2020-0 No 1mg 10 mg 2-12 tablet 00:00: 00 amlodipine 2020-0 No 1mg 5 mg tablet 2-12 00:00: 00 amoxicillin 2019-1 No 1mg 875 0-16 mg-potassiu 00:00: m 00 clavulanate 125 mg tablet amoxicillin 2019-1 No 1mg 875 0-16 mg-potassiu 00:00: m 00 clavulanate 125 mg tablet amlodipine 2019-0 No 1mg 5 mg tablet 03-06 00:00: 00 lisinopril 2019-0 No 1mg 10 mg 8-27 tablet 00:00: 00 fenofibrate 2019-0 No 1mg nanocrystal 8-27 lized 145 00:00: mg tablet 00 amlodipine 2019-0 No 1mg 5 mg tablet 03-06 00:00: 00 lisinopril 2019-0 No 1mg 10 mg 8-27 tablet 00:00: 00 fenofibrate 2019-0 No 1mg nanocrystal 8-27 lized 145 00:00: mg tablet 00 amlodipine 2019-0 No 1mg 5 mg tablet 5-20 00:00: 00 lisinopril 2019-0 No 1mg 10 mg 5-20 tablet 00:00: 00 amlodipine 2019-0 No 1mg 5 mg tablet 5-20 00:00: 00 lisinopril 2019-0 No 1mg 10 mg 5-20 tablet 00:00: 00 amlodipine 2019-0 No 1mg 5 mg tablet 2-07 00:00: 00 cyclobenzap 2019-0 No 1mg rine 5 mg 2-07 tablet 00:00: 00 amlodipine 2019-0 No 1mg 5 mg tablet 2-07 00:00: 00 cyclobenzap 2019-0 No 1mg rine 5 mg 2-07 tablet 00:00: 00 lisinopril 2019-0 No 1mg 10 mg 1-31 tablet 00:00: 00 lisinopril 2019-0 No 1mg 10 mg 1-31 tablet 00:00: 00 lisinopril 2018-1 No 1mg 10 mg 2-14 tablet 00:00: 00 fenofibrate 2018-1 No 1mg nanocrystal 2-14 lized 145 00:00: mg tablet 00 lisinopril 2018-1 No 1mg 10 mg 2-14 tablet 00:00: 00 lisinopril 2018-1 No 1mg 10 mg 2-14 tablet 00:00: 00 fenofibrate 2018-1 No 1mg nanocrystal 2-14 lized 145 00:00: mg tablet 00 lisinopril 2018-1 No 1mg 10 mg 2-14 tablet 00:00: 00 Vital Signs Vital Name Observation Time Observation Value Comments Source BP Systolic 2022-04-21 15:18:00 154 mm[Hg] BP Diastolic 2022-04-21 15:18:00 92 mm[Hg] Weight Measured 2022-04-21 15:18:00 137.40 pounds Height Measured 2022-04-21 15:18:00 63.58 inches Body Temperature 2022-04-21 15:18:00 98.30 degrees Heart Rate 2022-04-21 15:18:00 71.00 /min Respiratory Rate 2022-04-21 15:18:00 16.00 /min BP Systolic 2022-01-14 10:01:00 189 mm[Hg] BP Diastolic 2022-01-14 10:01:00 114 mm[Hg] Weight Measured 2022-01-14 10:01:00 137.60 pounds Height Measured 2022-01-14 10:01:00 63.58 inches Body Temperature 2022-01-14 10:01:00 98.30 degrees Heart Rate 2022-01-14 10:01:00 74.00 /min Respiratory Rate 2022-01-14 10:01:00 BP Systolic 2020-11-19 14:35:00 160 mm[Hg] BP Diastolic 2020-11-19 14:35:00 93 mm[Hg] Weight Measured 2020-11-19 14:35:00 142.80 pounds Height Measured 2020-11-19 14:35:00 63.58 inches Body Temperature 2020-11-19 14:35:00 97.40 degrees Heart Rate 2020-11-19 14:35:00 76.00 /min Respiratory Rate 2020-11-19 14:35:00 16.00 /min BP Systolic 2020-05-19 15:28:00 159 mm[Hg] BP Diastolic 2020-05-19 15:28:00 95 mm[Hg] Weight Measured 2020-05-19 15:28:00 142.60 pounds Height Measured 2020-05-19 15:28:00 60.02 inches Body Temperature 2020-05-19 15:28:00 98.80 degrees Heart Rate 2020-05-19 15:28:00 67.00 /min Respiratory Rate 2020-05-19 15:28:00 17.00 /min BP Diastolic 2019-08-27 16:18:00 81 mm[Hg] Weight Measured 2019-08-27 16:18:00 148.00 pounds Height Measured 2019-08-27 16:18:00 60.02 inches Body Temperature 2019-08-27 16:18:00 98.50 degrees Heart Rate 2019-08-27 16:18:00 78.00 /min Respiratory Rate 2019-08-27 16:18:00 20.00 /min BP Systolic 2019-08-27 16:18:00 163 mm[Hg] BP Systolic 2019-08-22 16:32:00 157 mm[Hg] BP Diastolic 2019-08-22 16:32:00 96 mm[Hg] Weight Measured 2019-08-22 16:32:00 148.40 pounds Height Measured 2019-08-22 16:32:00 60.02 inches Body Temperature 2019-08-22 16:32:00 98.10 degrees Heart Rate 2019-08-22 16:32:00 72.00 /min Respiratory Rate 2019-08-22 16:32:00 BP Systolic 2019-04-25 08:53:00 158 mm[Hg] BP Diastolic 2019-04-25 08:53:00 105 mm[Hg] Weight Measured 2019-04-25 08:53:00 140.00 pounds Height Measured 2019-04-25 08:53:00 60.02 inches Body Temperature 2019-04-25 08:53:00 99.50 degrees Heart Rate 2019-04-25 08:53:00 65.00 /min Respiratory Rate 2019-04-25 08:53:00 17.00 /min BP Systolic 2019-03-06 08:32:00 154 mm[Hg] BP Diastolic 2019-03-06 08:32:00 105 mm[Hg] Weight Measured 2019-03-06 08:32:00 145.60 pounds Height Measured 2019-03-06 08:32:00 60.02 inches Body Temperature 2019-03-06 08:32:00 99.10 degrees Heart Rate 2019-03-06 08:32:00 80.00 /min Respiratory Rate 2019-03-06 08:32:00 16.00 /min BP Systolic 2019-03-06 08:17:00 154 mm[Hg] BP Diastolic 2019-03-06 08:17:00 105 mm[Hg] Weight Measured 2019-03-06 08:17:00 145.60 pounds Height Measured 2019-03-06 08:17:00 60.02 inches Body Temperature 2019-03-06 08:17:00 99.10 degrees Heart Rate 2019-03-06 08:17:00 80.00 /min Respiratory Rate 2019-03-06 08:17:00 16.00 /min BP Systolic 2018-11-24 12:16:00 180 mm[Hg] BP Diastolic 2018-11-24 12:16:00 106 mm[Hg] Weight Measured 2018-11-24 12:16:00 142.60 pounds Height Measured 2018-11-24 12:16:00 60.02 inches Body Temperature 2018-11-24 12:16:00 98.10 degrees Heart Rate 2018-11-24 12:16:00 65.00 /min Respiratory Rate 2018-11-24 12:16:00 17.00 /min BP Systolic 2018-08-17 09:01:00 152 mm[Hg] BP Diastolic 2018-08-17 09:01:00 97 mm[Hg] Weight Measured 2018-08-17 09:01:00 140.40 pounds Height Measured 2018-08-17 09:01:00 60.02 inches Body Temperature 2018-08-17 09:01:00 98.90 degrees Heart Rate 2018-08-17 09:01:00 67.00 /min Respiratory Rate 2018-08-17 09:01:00 16.00 /min Procedures This patient has no known procedures. Plan of Care Planned Activity Planned Date Details Comments Source Goal Plan of Care Note [code = 77035-7] Goal Plan of Care Note [code = 92425-9] Goal Plan of Care Note [code = 92115-8] Goal Plan of Care Note [code = 21439-7] Goal Plan of Care Note [code = 17285-3] Goal Plan of Care Note [code = 75188-9] Goal Plan of Care Note [code = 54796-5] Goal Plan of Care Note [code = 27138-7] Goal Plan of Care Note [code = 75315-0] Goal Plan of Care Note [code = 40777-3] Goal Plan of Care Note [code = 43017-3] Goal Plan of Care Note [code = 21147-7] Goal Plan of Care Note [code = 56399-0] Goal Plan of Care Note [code = 49123-3] Goal Plan of Care Note [code = 13718-1] Goal Plan of Care Note [code = 49934-0] Goal Plan of Care Note [code = 62293-7] Goal Plan of Care Note [code = 70442-8] Goal Plan of Care Note [code = 68384-2] Goal Plan of Care Note [code = 94884-2] Goal Plan of Care Note [code = 39734-3] Goal Plan of Care Note [code = 60798-7] Goal Plan of Care Note [code = 19349-9] Goal Plan of Care Note [code = 25913-5] Goal Plan of Care Note [code = 24205-6] Goal Plan of Care Note [code = 41043-7] Goal Plan of Care Note [code = 59838-2] Goal Plan of Care Note [code = 49993-7] Goal Plan of Care Note [code = 56919-2] Goal Plan of Care Note [code = 71957-5] Goal Plan of Care Note [code = 62936-0] Goal Plan of Care Note [code = 26680-4] Goal Plan of Care Note [code = 47532-9] Goal Plan of Care Note [code = 97099-7] Goal Plan of Care Note [code = 96364-1] Goal Plan of Care Note [code = 61358-5] Goal Plan of Care Note [code = 15409-3] Goal Plan of Care Note [code = 24377-7] Goal Plan of Care Note [code = 70857-5] Goal Plan of Care Note [code = 97782-4] Goal Plan of Care Note [code = 08049-2] Goal Plan of Care Note [code = 10665-1] Goal Plan of Care Note [code = 60337-1] Goal Plan of Care Note [code = 53927-6] Goal Plan of Care Note [code = 10599-2] Goal Plan of Care Note [code = 50189-9] Goal Plan of Care Note [code = 43164-1] Goal Plan of Care Note [code = 84729-3] Goal Plan of Care Note [code = 76967-6] Goal Plan of Care Note [code = 48909-0] Goal Plan of Care Note [code = 45771-9] Goal Plan of Care Note [code = 06488-3] Goal Plan of Care Note [code = 62766-3] Goal Plan of Care Note [code = 90404-9] Goal Plan of Care Note [code = 45069-9] Goal Plan of Care Note [code = 19274-4] Goal Plan of Care Note [code = 96213-3] Goal Plan of Care Note [code = 46301-6] Goal Plan of Care Note [code = 91160-1] Encounters Start End Encounter Admission Attending Care Care Encounter Source Date/Time Date/Time Type Type Clinicians Facility Department ID 2022-04-22 2022-04-22 Outpatient [facility] [id number] Johnathon 08:23:48 08:23:48 1013 F Alirio 2022-04-21 2022-04-21 Outpatient [facility] [id number] Johnathon 15:07:16 15:07:16 1012 F Alirio 2022-04-21 2022-04-21 Outpatient [id number] 00:00:00 00:00:00 Visit [id number] [id number] 2022-01-14 2022-01-14 Outpatient [id number]- [id number] 00:00:00 00:00:00 Visit 21c0-105r [id number]-7 -[id number] 7mdgaz78v acc08e Results Test Description Test Time Test Comments Results Result Comments Source TSH, THIRD GENERATION 2022-04-23 06:50:25 Test Item Value Reference Range Interpretation Comme nts TSH, THIRD GENERATION (test 1.960 UIU/ML 0.400-4.100 UNLESS OTHERWISE INDICATED, code = 2821) ALL TESTING PER FORMED ATCLINICAL PATH [facility], [place] [address] 24 LOG SCALER: Sb CHIN [id number] [place] [id number] HEMOGLOBIN [id number] 06:04:37 Test Item Value Reference Range Interpretation Comments HEMOGLOBIN A1c (test 6.7 % 4.2-5.6 H AMERIC AN DIABETES code = 73839) ASSOCIATION IDELINES FOR HGB A1C: PREDIABETES/INC REASED RISK . . . . . . . 5.7 -6.4% DIAGNOSIS OF DI ABETES . . . . . . . . . >=6 .5% WITH CONFIRMATION OR APPROPRIATE SYMPTOMS NOTE: ASSAY MAY BE AFFECTED BY HEMOGLOBINOPATH IES (SICKLE CELL ANEMIA, S- C DISEASE, OTHERS) OR JESS FICIALLY LOWERED BY DECR EASED RED CELL SURVIVAL ( HEMOLYTIC ANEMIAS, BLOOD LOSS, ETC.). CONSIDER ALTERN ATE TESTING OR LABORATORY C ONSULTATION. CBC W/AUTO DIFF WITH [id number] 05:12:21 Test Item Value Reference Range Interpretation Comments WBC (test code = 6.8 K/UL 3.5-11.0 1001) RBC (test code = 4.64 M/UL 3.80-5.40 1002) HEMOGLOBIN (test code 13.2 G/DL 11.5-15.5 = 1003) HEMATOCRIT (test code 40.7 % 34.0-45.0 = 1004) MCV (test code = 87.7 fL 80.0-99.0 1005) MCH (test code = 28.4 PG 25.0-33.0 1006) MCHC (test code = 32.4 G/DL 31.0-36.0 1007) RDW (test code = 13.4 % 11.5-15.0 1038) NEUTROPHILS (test 58.6 % code = 1008) LYMPHOCYTES (test 33.2 % code = 1010) MONOCYTES (test code 6.0 % = 1011) EOSINOPHILS (test 1.5 % code = 1012) BASOPHILS (test code 0.4 % = 1013) IMMATURE GRANULOCYTES 0.3 % (test code = 1036) NUCLEATED RBCS (test 0.0 /100 WBC'S See_Comment [Aut omated code = 1065) message] The sy stem which generated this result transmitted reference range : 0.0. The refere nce range was not u sed to interpret th is result as normal/abnormal . PLATELET COUNT (test 221 K/UL 130-400 code = 1015) ABSOLUTE NEUTROPHILS 4.01 K/UL 1.50-7.50 (test code = 1066) ABSOLUTE LYMPHOCYTES 2.27 K/UL 1.00-4.00 (test code = 1067) ABSOLUTE MONOCYTES 0.41 K/UL 0.20-1.00 (test code = 1068) ABSOLUTE EOSINOPHILS 0.10 K/UL 0.00-0.50 (test code = 1040) ABSOLUTE BASOPHILS 0.03 K/UL 0.00-0.20 (test code = 1069) ABS IMMATURE 0.02 K/UL 0.00-0.10 GRANULOCYTES (test code = 1020) ABS NUCLEATED RBCS 0.00 K/UL 0.00-0.11 (test code = 30974) LIPID [id number] 03:08:09 Test Item Value Reference Range Interpretation Comments CHOLESTEROL (test 212 MG/DL <200 H code = 2210) TRIGLYCERIDES (test 112 MG/DL <150 code = 2232) HDL CHOLESTEROL (test 56 MG/DL >39 code = 2220) CALC LDL CHOL (test 134 MG/DL <100 H NOTE: C ALCULATED LDL code = 2237) IS BASED ON SHELLEY-GRIFFITH METHOD WHICHINCLUDES ADJUSTABLE TRIGLYCERIDE:VL DL CHOLESTEROL RAT IO.THIS FACTOR VARIES B Y MEASURED TRIGLY CERIDE AND NON-HDLCHOL ESTEROL CONCENTRATIONS WITH INCREASED CALCU LATED LDL SEENIN HIGH ER TRIGLYCERIDE OR LOWER NON-HDL SPECIME NS. FOR MOREINFORMATION , SEE CLIENT ANNOUNCE MENT AT [email or web address] [email or web address] RATIO LDL/HDL 2.39 RATIO <3.22 (test code = 2238) COMPREHENSIVE METABOLIC [id number] 03:08:09 Test Item Value Reference Range Interpretation Comments GLUCOSE (test code = 122 MG/DL 70-99 H 2216) BUN (test code = 12 MG/DL 8-23 2207) CREATININE (test 0.60 MG/DL 0.60-1.30 code = 2214) eGFR (2020 CKD-EPI) 102 >60 (test code = 77359) ML/MIN/1.73 CALC BUN/CREAT (test 20 RATIO 6-28 code = 2235) SODIUM (test code = 144 MEQ/L 740-787 5368) POTASSIUM (test code 4.1 MEQ/L 3.5-5.4 = 222) CHLORIDE (test code 107 MEQ/L 95-107 = 2215) CARBON DIOXIDE (test 25 MEQ/L 19-31 code = 2206) CALCIUM (test code = 9.4 MG/DL 8.5-10.5 2208) PROTEIN, TOTAL (test 6.6 G/DL 6.1-8.3 code = 2229) ALBUMIN (test code = 4.5 G/DL 3.5-5.2 2200) CALC GLOBULIN (test 2.1 G/DL 1.9-3.7 code = 2240) CALC A/G RATIO (test 2.1 RATIO 1.0-2.6 code = 2234) BILIRUBIN, TOTAL 0.5 MG/DL See_Comment [Automated message] (test code = 2207) The [employer] which generated this result transmit tristan reference range : <=1.2. The refe rence range was not u sed to interpret th is result as normal/abnormal . ALKALINE PHOSPHATASE 68 U/L 40-140 (test code = 2204) AST (test code = 14 U/L 9-40 2217) ALT (test code = 10 U/L 5-40 2218) RSV BY [id number] 00:00:00 Test Item Value Reference Range Interpretation Comments RSV BY DFA (test code = 89656) Negative SOURCE (test code = 83650) Not Provided RSV BY [id number] 00:00:00 Test Item Value Reference Range Interpretation Comments RSV BY DFA (test code = 92816) Negative SOURCE (test code = 41398) Not Provided RSV BY [id number] 00:00:00 Test Item Value Reference Range Interpretation Comments RSV BY DFA (test code = 70837) Negative SOURCE (test code = 38902) Not Provided SARS-CoV-2 (COVID-19) by RT-PCR (HIGH RISK)2021-03-21 00:00:00 Test Item Value Reference Range Interpretation Comments SARS-CoV-2 INTERPRETATION (test NEGATIVE code = 50096) SOURCE (test code = 90639) NOT SPECIFIED SARS-CoV-2 (COVID-19) by RT-PCR (HIGH RISK)2021-03-21 00:00:00 Test Item Value Reference Range Interpretation Comments SARS-CoV-2 INTERPRETATION (test NEGATIVE code = 53154) SOURCE (test code = 80533) NOT SPECIFIED SARS-CoV-2 (COVID-19) by RT-PCR (HIGH RISK)2021-03-21 00:00:00 Test Item Value Reference Range Interpretation Comments SARS-CoV-2 INTERPRETATION (test NEGATIVE code = 86547) SOURCE (test code = 63602) NOT SPECIFIED LIPID [id number] 00:00:00 Test Item Value Reference Range Interpretation Comments CHOLESTEROL (test code = 2210) 158 MG/DL TRIGLYCERIDES (test code = 2232) 112 MG/DL HDL CHOLESTEROL (test code = 2220) 51 MG/DL CALC LDL CHOL (test code = 2237) 86 MG/DL RISK RATIO LDL/HDL (test code = 1.69 RATIO 2238) HEMOGLOBIN [id number] 00:00:00 Test Item Value Reference Range Interpretation Comments HEMOGLOBIN A1c (test code = 39827) 6.2 % HEMOGLOBIN [id number] 00:00:00 Test Item Value Reference Range Interpretation Comments HEMOGLOBIN A1c (test code = 48967) 6.2 % HEMOGLOBIN [id number] 00:00:00 Test Item Value Reference Range Interpretation Comments HEMOGLOBIN A1c (test code = 59013) 6.2 % COMPREHENSIVE METABOLIC [id number] 00:00:00 Test Item Value Reference Range Interpretation Comments GLUCOSE (test code = 2217) 118 MG/DL BUN (test code = 2208) 12 MG/DL CREATININE (test code = 2214) 0.55 MG/DL eGFR AMER. (test code 118 ML/MIN/1.73 = 06783) eGFR NON- AMER. (test 102 ML/MIN/1.73 code = 20572) CALC BUN/CREAT (test code = 22 RATIO 2235) SODIUM (test code = 2231) 142 MEQ/L POTASSIUM (test code = 2228) 3.8 MEQ/L CHLORIDE (test code = 2215) 107 MEQ/L CARBON DIOXIDE (test code = 23 MEQ/L 2205) CALCIUM (test code = 2209) 9.2 MG/DL PROTEIN, TOTAL (test code = 6.9 G/DL 2228) ALBUMIN (test code = 2201) 4.4 G/DL CALC GLOBULIN (test code = 2.5 G/DL 0) CALC A/G RATIO (test code = 1.8 RATIO 2234) BILIRUBIN, TOTAL (test code = 0.4 MG/DL 2206) ALKALINE PHOSPHATASE (test 57 U/L code = 2204) AST (test code = 2218) 16 U/L ALT (test code = 2219) 13 U/L COMPREHENSIVE METABOLIC [id number] 00:00:00 Test Item Value Reference Range Interpretation Comments GLUCOSE (test code = 2217) 118 MG/DL BUN (test code = 2208) 12 MG/DL CREATININE (test code = 2214) 0.55 MG/DL eGFR AMER. (test code 118 ML/MIN/1.73 = 59106) eGFR NON- AMER. (test 102 ML/MIN/1.73 code = 33115) CALC BUN/CREAT (test code = 22 RATIO 2235) SODIUM (test code = 2231) 142 MEQ/L POTASSIUM (test code = 2228) 3.8 MEQ/L CHLORIDE (test code = 2215) 107 MEQ/L CARBON DIOXIDE (test code = 23 MEQ/L 2205) CALCIUM (test code = 2209) 9.2 MG/DL PROTEIN, TOTAL (test code = 6.9 G/DL 2228) ALBUMIN (test code = 2201) 4.4 G/DL CALC GLOBULIN (test code = 2.5 G/DL 2239) CALC A/G RATIO (test code = 1.8 RATIO 2233) BILIRUBIN, TOTAL (test code = 0.4 MG/DL 2206) ALKALINE PHOSPHATASE (test 57 U/L code = 2204) AST (test code = 2218) 16 U/L ALT (test code = 2219) 13 U/L [id number] 00:00:00 Test Item Value Reference Range Interpretation Comments TSH, THIRD GENERATION (test code 1.930 UIU/ML = 2821) [id number] 00:00:00 Test Item Value Reference Range Interpretation Comments TSH, THIRD GENERATION (test code 1.930 UIU/ML = 2821) [id number] 00:00:00 Test Item Value Reference Range Interpretation Comments TSH, THIRD GENERATION (test code 1.930 UIU/ML = 2821) CBC W/AUTO [id number] 00:00:00 Test Item Value Reference Range Interpretation Comments WBC (test code = 1001) 7.5 K/UL RBC (test code = 1002) 4.73 M/UL HEMOGLOBIN (test code = 1003) 13.6 G/DL HEMATOCRIT (test code = 1004) 39.9 % MCV (test code = 1005) 84.4 fL MCH (test code = 1006) 28.8 PG MCHC (test code = 1007) 34.1 G/DL RDW (test code = 1038) 12.7 % NEUTROPHILS (test code = 1008) 69.0 % LYMPHOCYTES (test code = 1010) 23.9 % MONOCYTES (test code = 1011) 5.6 % EOSINOPHILS (test code = 1012) 0.8 % BASOPHILS (test code = 1013) 0.4 % IMMATURE GRANULOCYTES (test 0.3 % code = 1036) NUCLEATED RBCS (test code = 0.0 /100WBC'S 1065) PLATELET COUNT (test code = 279 K/UL 1015) ABSOLUTE NEUTROPHILS (test code 5.14 K/UL = 1066) ABSOLUTE LYMPHOCYTES (test code 1.78 K/UL = 1067) ABSOLUTE MONOCYTES (test code = 0.42 K/UL 1068) ABSOLUTE EOSINOPHILS (test code 0.06 K/UL = 1040) ABSOLUTE BASOPHILS (test code = 0.03 K/UL 1069) ABS IMMATURE GRANULOCYTES (test 0.02 K/UL code = 1020) ABS NUCLEATED RBCS (test code = 0.00 K/UL 82477) CBC W/AUTO [id number] 00:00:00 Test Item Value Reference Range Interpretation Comments WBC (test code = 1001) 7.5 K/UL RBC (test code = 1002) 4.73 M/UL HEMOGLOBIN (test code = 1003) 13.6 G/DL HEMATOCRIT (test code = 1004) 39.9 % MCV (test code = 1005) 84.4 fL MCH (test code = 1006) 28.8 PG MCHC (test code = 1007) 34.1 G/DL RDW (test code = 1038) 12.7 % NEUTROPHILS (test code = 1008) 69.0 % LYMPHOCYTES (test code = 1010) 23.9 % MONOCYTES (test code = 1011) 5.6 % EOSINOPHILS (test code = 1012) 0.8 % BASOPHILS (test code = 1013) 0.4 % IMMATURE GRANULOCYTES (test 0.3 % code = 1036) NUCLEATED RBCS (test code = 0.0 /100WBC'S 1065) PLATELET COUNT (test code = 279 K/UL 1015) ABSOLUTE NEUTROPHILS (test code 5.14 K/UL = 1066) ABSOLUTE LYMPHOCYTES (test code 1.78 K/UL = 1067) ABSOLUTE MONOCYTES (test code = 0.42 K/UL 1068) ABSOLUTE EOSINOPHILS (test code 0.06 K/UL = 1040) ABSOLUTE BASOPHILS (test code = 0.03 K/UL 1069) ABS IMMATURE GRANULOCYTES (test 0.02 K/UL code = 1020) ABS NUCLEATED RBCS (test code = 0.00 K/UL 23147) LIPID [id number] 00:00:00 Test Item Value Reference Range Interpretation Comments CHOLESTEROL (test code = 2210) 158 MG/DL TRIGLYCERIDES (test code = 2232) 112 MG/DL HDL CHOLESTEROL (test code = 2220) 51 MG/DL CALC LDL CHOL (test code = 2237) 86 MG/DL RISK RATIO LDL/HDL (test code = 1.69 RATIO 8) HEMOGLOBIN [id number] 00:00:00 Test Item Value Reference Range Interpretation Comments HEMOGLOBIN A1c (test code = 43402) 6.2 % HEMOGLOBIN [id number] 00:00:00 Test Item Value Reference Range Interpretation Comments HEMOGLOBIN A1c (test code = 88353) 6.2 % COMPREHENSIVE METABOLIC [id number] 00:00:00 Test Item Value Reference Range Interpretation Comments GLUCOSE (test code = 2217) 118 MG/DL BUN (test code = 2208) 12 MG/DL CREATININE (test code = 2214) 0.55 MG/DL eGFR AMER. (test code 118 ML/MIN/1.73 = 95425) eGFR NON- AMER. (test 102 ML/MIN/1.73 code = 84000) CALC BUN/CREAT (test code = 22 RATIO 2234) SODIUM (test code = 2231) 142 MEQ/L POTASSIUM (test code = 2228) 3.8 MEQ/L CHLORIDE (test code = 2215) 107 MEQ/L CARBON DIOXIDE (test code = 23 MEQ/L 2205) CALCIUM (test code = 2209) 9.2 MG/DL PROTEIN, TOTAL (test code = 6.9 G/DL 2228) ALBUMIN (test code = 2201) 4.4 G/DL CALC GLOBULIN (test code = 2.5 G/DL 0) CALC A/G RATIO (test code = 1.8 RATIO 2233) BILIRUBIN, TOTAL (test code = 0.4 MG/DL 2206) ALKALINE PHOSPHATASE (test 57 U/L code = 2204) AST (test code = 2218) 16 U/L ALT (test code = 2219) 13 U/L [id number] 00:00:00 Test Item Value Reference Range Interpretation Comments TSH, THIRD GENERATION (test code 1.930 UIU/ML = 2821) [id number] 00:00:00 Test Item Value Reference Range Interpretation Comments TSH, THIRD GENERATION (test code 1.930 UIU/ML = 2821) CBC W/AUTO [id number] 00:00:00 Test Item Value Reference Range Interpretation Comments WBC (test code = 1001) 7.5 K/UL RBC (test code = 1002) 4.73 M/UL HEMOGLOBIN (test code = 1003) 13.6 G/DL HEMATOCRIT (test code = 1004) 39.9 % MCV (test code = 1005) 84.4 fL MCH (test code = 1006) 28.8 PG MCHC (test code = 1007) 34.1 G/DL RDW (test code = 1038) 12.7 % NEUTROPHILS (test code = 1008) 69.0 % LYMPHOCYTES (test code = 1010) 23.9 % MONOCYTES (test code = 1011) 5.6 % EOSINOPHILS (test code = 1012) 0.8 % BASOPHILS (test code = 1013) 0.4 % IMMATURE GRANULOCYTES (test 0.3 % code = 1036) NUCLEATED RBCS (test code = 0.0 /100WBC'S 1065) PLATELET COUNT (test code = 279 K/UL 1015) ABSOLUTE NEUTROPHILS (test code 5.14 K/UL = 1066) ABSOLUTE LYMPHOCYTES (test code 1.78 K/UL = 1067) ABSOLUTE MONOCYTES (test code = 0.42 K/UL 1068) ABSOLUTE EOSINOPHILS (test code 0.06 K/UL = 1040) ABSOLUTE BASOPHILS (test code = 0.03 K/UL 1069) ABS IMMATURE GRANULOCYTES (test 0.02 K/UL code = 1020) ABS NUCLEATED RBCS (test code = 0.00 K/UL 30632) CBC W/AUTO [id number] 00:00:00 Test Item Value Reference Range Interpretation Comments WBC (test code = 1001) 7.5 K/UL RBC (test code = 1002) 4.73 M/UL HEMOGLOBIN (test code = 1003) 13.6 G/DL HEMATOCRIT (test code = 1004) 39.9 % MCV (test code = 1005) 84.4 fL MCH (test code = 1006) 28.8 PG MCHC (test code = 1007) 34.1 G/DL RDW (test code = 1038) 12.7 % NEUTROPHILS (test code = 1008) 69.0 % LYMPHOCYTES (test code = 1010) 23.9 % MONOCYTES (test code = 1011) 5.6 % EOSINOPHILS (test code = 1012) 0.8 % BASOPHILS (test code = 1013) 0.4 % IMMATURE GRANULOCYTES (test 0.3 % code = 1036) NUCLEATED RBCS (test code = 0.0 /100WBC'S 1065) PLATELET COUNT (test code = 279 K/UL 1015) ABSOLUTE NEUTROPHILS (test code 5.14 K/UL = 1066) ABSOLUTE LYMPHOCYTES (test code 1.78 K/UL = 1067) ABSOLUTE MONOCYTES (test code = 0.42 K/UL 1068) ABSOLUTE EOSINOPHILS (test code 0.06 K/UL = 1040) ABSOLUTE BASOPHILS (test code = 0.03 K/UL 1069) ABS IMMATURE GRANULOCYTES (test 0.02 K/UL code = 1020) ABS NUCLEATED RBCS (test code = 0.00 K/UL 58385) CBC W/AUTO [id number] 00:00:00 Test Item Value Reference Range Interpretation Comments WBC (test code = 1001) 7.5 K/UL RBC (test code = 1002) 4.73 M/UL HEMOGLOBIN (test code = 1003) 13.6 G/DL HEMATOCRIT (test code = 1004) 39.9 % MCV (test code = 1005) 84.4 fL MCH (test code = 1006) 28.8 PG MCHC (test code = 1007) 34.1 G/DL RDW (test code = 1038) 12.7 % NEUTROPHILS (test code = 1008) 69.0 % LYMPHOCYTES (test code = 1010) 23.9 % MONOCYTES (test code = 1011) 5.6 % EOSINOPHILS (test code = 1012) 0.8 % BASOPHILS (test code = 1013) 0.4 % IMMATURE GRANULOCYTES (test 0.3 % code = 1036) NUCLEATED RBCS (test code = 0.0 /100WBC'S 1065) PLATELET COUNT (test code = 279 K/UL 1015) ABSOLUTE NEUTROPHILS (test code 5.14 K/UL = 1066) ABSOLUTE LYMPHOCYTES (test code 1.78 K/UL = 1067) ABSOLUTE MONOCYTES (test code = 0.42 K/UL 1068) ABSOLUTE EOSINOPHILS (test code 0.06 K/UL = 1040) ABSOLUTE BASOPHILS (test code = 0.03 K/UL 1069) ABS IMMATURE GRANULOCYTES (test 0.02 K/UL code = 1020) ABS NUCLEATED RBCS (test code = 0.00 K/UL 78612) LIPID [id number] 00:00:00 Test Item Value Reference Range Interpretation Comments CHOLESTEROL (test code = 2210) 158 MG/DL TRIGLYCERIDES (test code = 2232) 112 MG/DL HDL CHOLESTEROL (test code = 2220) 51 MG/DL CALC LDL CHOL (test code = 2237) 86 MG/DL RISK RATIO LDL/HDL (test code = 1.69 RATIO 2238) LIPID [id number] 00:00:00 Test Item Value Reference Range Interpretation Comments CHOLESTEROL (test code = 2210) 150 MG/DL TRIGLYCERIDES (test code = 2232) 106 MG/DL HDL CHOLESTEROL (test code = 2220) 51 MG/DL CALC LDL CHOL (test code = 2237) 80 MG/DL RISK RATIO LDL/HDL (test code = 1.57 RATIO 2238) COMPREHENSIVE METABOLIC [id number] 00:00:00 Test Item Value Reference Range Interpretation Comments GLUCOSE (test code = 2217) 101 MG/DL BUN (test code = 2208) 15 MG/DL CREATININE (test code = 2214) 0.63 MG/DL eGFR AMER. (test code 114 ML/MIN/1.73 = 54687) eGFR NON- AMER. (test 98 ML/MIN/1.73 code = 96337) CALC BUN/CREAT (test code = 24 RATIO 2235) SODIUM (test code = 2231) 145 MEQ/L POTASSIUM (test code = 2228) 3.8 MEQ/L CHLORIDE (test code = 2215) 107 MEQ/L CARBON DIOXIDE (test code = 26 MEQ/L 2205) CALCIUM (test code = 2209) 9.9 MG/DL PROTEIN, TOTAL (test code = 6.6 G/DL 2228) ALBUMIN (test code = 2201) 4.4 G/DL CALC GLOBULIN (test code = 2.2 G/DL 2240) CALC A/G RATIO (test code = 2.0 RATIO 2234) BILIRUBIN, TOTAL (test code = 0.2 MG/DL 2206) ALKALINE PHOSPHATASE (test 52 U/L code = 2204) AST (test code = 2218) 16 U/L ALT (test code = 2219) 12 U/L COMPREHENSIVE METABOLIC [id number] 00:00:00 Test Item Value Reference Range Interpretation Comments GLUCOSE (test code = 2217) 101 MG/DL BUN (test code = 2208) 15 MG/DL CREATININE (test code = 2214) 0.63 MG/DL eGFR AMER. (test code 114 ML/MIN/1.73 = 48722) eGFR NON- AMER. (test 98 ML/MIN/1.73 code = 91339) CALC BUN/CREAT (test code = 24 RATIO 2235) SODIUM (test code = 2231) 145 MEQ/L POTASSIUM (test code = 2228) 3.8 MEQ/L CHLORIDE (test code = 2215) 107 MEQ/L CARBON DIOXIDE (test code = 26 MEQ/L 2205) CALCIUM (test code = 2209) 9.9 MG/DL PROTEIN, TOTAL (test code = 6.6 G/DL 2228) ALBUMIN (test code = 220) 4.4 G/DL CALC GLOBULIN (test code = 2.2 G/DL 2239) CALC A/G RATIO (test code = 2.0 RATIO 2233) BILIRUBIN, TOTAL (test code = 0.2 MG/DL 2206) ALKALINE PHOSPHATASE (test 52 U/L code = 220) AST (test code = 2218) 16 U/L ALT (test code = 2219) 12 U/L HEMOGLOBIN [id number] 00:00:00 Test Item Value Reference Range Interpretation Comments HEMOGLOBIN A1c (test code = 84615) 6.3 % HEMOGLOBIN [id number] 00:00:00 Test Item Value Reference Range Interpretation Comments HEMOGLOBIN A1c (test code = 12631) 6.3 % LIPID [id number] 00:00:00 Test Item Value Reference Range Interpretation Comments CHOLESTEROL (test code = 2210) 150 MG/DL TRIGLYCERIDES (test code = 2232) 106 MG/DL HDL CHOLESTEROL (test code = 2220) 51 MG/DL CALC LDL CHOL (test code = 2237) 80 MG/DL RISK RATIO LDL/HDL (test code = 1.57 RATIO 2238) COMPREHENSIVE METABOLIC [id number] 00:00:00 Test Item Value Reference Range Interpretation Comments GLUCOSE (test code = 2217) 101 MG/DL BUN (test code = 2208) 15 MG/DL CREATININE (test code = 2214) 0.63 MG/DL eGFR AMER. (test code 114 ML/MIN/1.73 = 64696) eGFR NON- AMER. (test 98 ML/MIN/1.73 code = 76398) CALC BUN/CREAT (test code = 24 RATIO 5) SODIUM (test code = 2231) 145 MEQ/L POTASSIUM (test code = 2228) 3.8 MEQ/L CHLORIDE (test code = 2215) 107 MEQ/L CARBON DIOXIDE (test code = 26 MEQ/L 2205) CALCIUM (test code = 2209) 9.9 MG/DL PROTEIN, TOTAL (test code = 6.6 G/DL 2228) ALBUMIN (test code = 2201) 4.4 G/DL CALC GLOBULIN (test code = 2.2 G/DL 2239) CALC A/G RATIO (test code = 2.0 RATIO 2233) BILIRUBIN, TOTAL (test code = 0.2 MG/DL 2206) ALKALINE PHOSPHATASE (test 52 U/L code = 2203) AST (test code = 221) 16 U/L ALT (test code = 2219) 12 U/L HEMOGLOBIN [id number] 00:00:00 Test Item Value Reference Range Interpretation Comments HEMOGLOBIN A1c (test code = 78190) 6.3 % HEMOGLOBIN [id number] 00:00:00 Test Item Value Reference Range Interpretation Comments HEMOGLOBIN A1c (test code = 81582) 6.3 % HEMOGLOBIN [id number] 00:00:00 Test Item Value Reference Range Interpretation Comments HEMOGLOBIN A1c (test code = 31128) 6.3 % LIPID [id number] 00:00:00 Test Item Value Reference Range Interpretation Comments CHOLESTEROL (test code = 2210) 150 MG/DL TRIGLYCERIDES (test code = 2232) 106 MG/DL HDL CHOLESTEROL (test code = 2220) 51 MG/DL CALC LDL CHOL (test code = 2237) 80 MG/DL RISK RATIO LDL/HDL (test code = 1.57 RATIO 2238) SARS-CoV-2 (COVID-19) by RT-PCR (HIGH RISK)2020-02-08 00:00:00 Test Item Value Reference Range Interpretation Comments SARS-CoV-2 INTERPRETATION (test NEGATIVE code = 16279) SOURCE (test code = 34384) NOT SPECIFIED SARS-CoV-2 (COVID-19) by RT-PCR (HIGH RISK)2020-02-08 00:00:00 Test Item Value Reference Range Interpretation Comments SARS-CoV-2 INTERPRETATION (test NEGATIVE code = 16629) SOURCE (test code = 85347) NOT SPECIFIED SARS-CoV-2 (COVID-19) by RT-PCR (HIGH RISK)2020-02-08 00:00:00 Test Item Value Reference Range Interpretation Comments SARS-CoV-2 INTERPRETATION (test NEGATIVE code = 94993) SOURCE (test code = 36286) NOT SPECIFIED COMPREHENSIVE METABOLIC [id number] 00:00:00 Test Item Value Reference Range Interpretation Comments GLUCOSE (test code = 95 mg/dL 2345-7) UREA NITROGEN (BUN) 12 mg/dL (test code = 3094-0) CREATININE (test code = 0.66 mg/dL 2160-0) eGFR NON-AFR. GUINEAN 97 mL/min/1.73m2 (test code = 12558-0) eGFR 113 mL/min/1.73m2 (test code = 86180-8) BUN/CREATININE RATIO NOT APPLICABLE (calc) (test code = 3097-3) SODIUM (test code = 141 mmol/L 2951-2) POTASSIUM (test code = 4.3 mmol/L 2823-3) CHLORIDE (test code = 106 mmol/L 2075-0) CARBON DIOXIDE (test 27 mmol/L code = 2027-9) CALCIUM (test code = 9.2 mg/dL 16578-0) PROTEIN, TOTAL (test 6.5 g/dL code = 2885-2) ALBUMIN (test code = 4.2 g/dL 1751-7) GLOBULIN (test code = 2.3 g/dL(calc) 73800-8) ALBUMIN/GLOBULIN RATIO 1.8 (calc) (test code = 1759-0) BILIRUBIN, TOTAL (test 0.5 mg/dL code = 1975-2) ALKALINE PHOSPHATASE 56 U/L (test code = 6768-6) AST (test code = 13 U/L 1920-8) ALT (test code = 11 U/L 1742-6) HEMOGLOBIN [id number] 00:00:00 Test Item Value Reference Range Interpretation Comments HEMOGLOBIN A1c (test code = 6.3 [facility] LIPID [id number] 00:00:00 Test Item Value Reference Range Interpretation Comments CHOLESTEROL, TOTAL (test code 185 mg/dL = 2093-3) HDL CHOLESTEROL (test code = 54 mg/dL 5-9) TRIGLYCERIDES (test code = 139 mg/dL 2571-8) LDL-CHOLESTEROL (test code = 106 mg/dL(calc) 12169-7) CHOL/HDLC RATIO (test code = 3.4 (calc) 9830-1) NON HDL CHOLESTEROL (test 131 mg/dL(calc) code = 12423-4) CBC (INCLUDES DIFF/PLT)2019-08-27 00:00:00 Test Item Value Reference Range Interpretation Comments WHITE BLOOD CELL COUNT (test 5.1 Thousand/uL code = 6690-2) RED BLOOD CELL COUNT (test 4.81 Million/uL code = 789-8) HEMOGLOBIN (test code = 13.9 g/dL 718-7) HEMATOCRIT (test code = 40.5 % 4544-3) MCV (test code = 787-2) 84.2 fL MCH (test code = 785-6) 28.9 pg MCHC (test code = 786-4) 34.3 g/dL RDW (test code = 788-0) 12.8 % PLATELET COUNT (test code = 259 Thousand/uL 777-3) MPV (test code = 776-5) 10.1 fL ABSOLUTE NEUTROPHILS (test 2581 cells/uL code = 751-8) ABSOLUTE BAND NEUTROPHILS DNR cells/uL (test code = 99005-9) ABSOLUTE METAMYELOCYTES (test DNR cells/uL code = 96241-8) ABSOLUTE MYELOCYTES (test DNR cells/uL code = 96144-0) ABSOLUTE PROMYELOCYTES (test DNR cells/uL code = 60186-5) ABSOLUTE LYMPHOCYTES (test 2066 cells/uL code = 731-0) ABSOLUTE MONOCYTES (test code 321 cells/uL = 742-7) ABSOLUTE EOSINOPHILS (test 112 cells/uL code = 711-2) ABSOLUTE BASOPHILS (test code 20 cells/uL = 704-7) ABSOLUTE BLASTS (test code = DNR cells/uL 13780-1) ABSOLUTE NUCLEATED RBC (test DNR cells/uL code = 53939-6) NEUTROPHILS (test code = 50.6 % 770-8) BAND NEUTROPHILS (test code = DNR % 764-1) METAMYELOCYTES (test code = DNR % 740-1) MYELOCYTES (test code = DNR % 749-2) PROMYELOCYTES (test code = DNR % 783-1) LYMPHOCYTES (test code = 40.5 % 736-9) REACTIVE LYMPHOCYTES (test DNR % code = 13852-7) MONOCYTES (test code = 6.3 % 5905-5) EOSINOPHILS (test code = 2.2 % 713-8) BASOPHILS (test code = 706-2) 0.4 % BLASTS (test code = 709-6) DNR % NUCLEATED RBC (test code = DNR /100WBC 56861-3) COMMENT(S) (test code = DNR 8251-1) COMPREHENSIVE METABOLIC [id number] 00:00:00 Test Item Value Reference Range Interpretation Comments GLUCOSE (test code = 95 mg/dL 2345-7) UREA NITROGEN (BUN) 12 mg/dL (test code = 3094-0) CREATININE (test code = 0.66 mg/dL 2160-0) eGFR NON-AFR. GUINEAN 97 mL/min/1.73m2 (test code = 04328-6) eGFR 113 mL/min/1.73m2 (test code = 74824-0) BUN/CREATININE RATIO NOT APPLICABLE (calc) (test code = 3097-3) SODIUM (test code = 141 mmol/L 2951-2) POTASSIUM (test code = 4.3 mmol/L 2823-3) CHLORIDE (test code = 106 mmol/L 2075-0) CARBON DIOXIDE (test 27 mmol/L code = 8-9) CALCIUM (test code = 9.2 mg/dL 68718-2) PROTEIN, TOTAL (test 6.5 g/dL code = 2885-2) ALBUMIN (test code = 4.2 g/dL 1751-7) GLOBULIN (test code = 2.3 g/dL(calc) 03944-1) ALBUMIN/GLOBULIN RATIO 1.8 (calc) (test code = 1759-0) BILIRUBIN, TOTAL (test 0.5 mg/dL code = 1975-2) ALKALINE PHOSPHATASE 56 U/L (test code = 6768-6) AST (test code = 13 U/L 1920-8) ALT (test code = 11 U/L 1742-6) HEMOGLOBIN [id number] 00:00:00 Test Item Value Reference Range Interpretation Comments HEMOGLOBIN A1c (test code = 6.3 %oftotalb 4548-4) LIPID [id number] 00:00:00 Test Item Value Reference Range Interpretation Comments CHOLESTEROL, TOTAL (test code 185 mg/dL = 2093-3) HDL CHOLESTEROL (test code = 54 mg/dL 2085-9) TRIGLYCERIDES (test code = 139 mg/dL 2571-8) LDL-CHOLESTEROL (test code = 106 mg/dL(calc) 36494-1) CHOL/HDLC RATIO (test code = 3.4 (calc) 9830-1) NON HDL CHOLESTEROL (test 131 mg/dL(calc) code = 15725-6) CBC (INCLUDES DIFF/PLT)2019-08-27 00:00:00 Test Item Value Reference Range Interpretation Comments WHITE BLOOD CELL COUNT (test 5.1 Thousand/uL code = 6690-2) RED BLOOD CELL COUNT (test 4.81 Million/uL code = 789-8) HEMOGLOBIN (test code = 13.9 g/dL 718-7) HEMATOCRIT (test code = 40.5 % 4544-3) MCV (test code = 787-2) 84.2 fL MCH (test code = 785-6) 28.9 pg MCHC (test code = 786-4) 34.3 g/dL RDW (test code = 788-0) 12.8 % PLATELET COUNT (test code = 259 Thousand/uL 777-3) MPV (test code = 776-5) 10.1 fL ABSOLUTE NEUTROPHILS (test 2581 cells/uL code = 751-8) ABSOLUTE BAND NEUTROPHILS DNR cells/uL (test code = 77106-0) ABSOLUTE METAMYELOCYTES (test DNR cells/uL code = 28356-7) ABSOLUTE MYELOCYTES (test DNR cells/uL code = 41144-9) ABSOLUTE PROMYELOCYTES (test DNR cells/uL code = 37076-1) ABSOLUTE LYMPHOCYTES (test 2066 cells/uL code = 731-0) ABSOLUTE MONOCYTES (test code 321 cells/uL = 742-7) ABSOLUTE EOSINOPHILS (test 112 cells/uL code = 711-2) ABSOLUTE BASOPHILS (test code 20 cells/uL = 704-7) ABSOLUTE BLASTS (test code = DNR cells/uL 44668-8) ABSOLUTE NUCLEATED RBC (test DNR cells/uL code = 81212-4) NEUTROPHILS (test code = 50.6 % 770-8) BAND NEUTROPHILS (test code = DNR % 764-1) METAMYELOCYTES (test code = DNR % 740-1) MYELOCYTES (test code = DNR % 749-2) PROMYELOCYTES (test code = DNR % 783-1) LYMPHOCYTES (test code = 40.5 % 736-9) REACTIVE LYMPHOCYTES (test DNR % code = 41890-1) MONOCYTES (test code = 6.3 % 5905-5) EOSINOPHILS (test code = 2.2 % 713-8) BASOPHILS (test code = 706-2) 0.4 % BLASTS (test code = 709-6) DNR % NUCLEATED RBC (test code = DNR /100WBC 84363-0) COMMENT(S) (test code = DNR 8251-1) COMPREHENSIVE METABOLIC [id number] 00:00:00 Test Item Value Reference Range Interpretation Comments GLUCOSE (test code = 114 mg/dL 2345-7) UREA NITROGEN (BUN) 14 mg/dL (test code = 3094-0) CREATININE (test code = 0.59 mg/dL 2160-0) eGFR NON-AFR. GUINEAN 101 mL/min/1.73m2 (test code = 08075-6) eGFR 117 mL/min/1.73m2 (test code = 33990-5) BUN/CREATININE RATIO NOT APPLICABLE (calc) (test code = 3097-3) SODIUM (test code = 137 mmol/L 2951-2) POTASSIUM (test code = 3.8 mmol/L 2823-3) CHLORIDE (test code = 106 mmol/L 2075-0) CARBON DIOXIDE (test 20 mmol/L code = 2027-9) CALCIUM (test code = 9.8 mg/dL 75651-7) PROTEIN, TOTAL (test 6.6 g/dL code = 2885-2) ALBUMIN (test code = 4.2 g/dL 1751-7) GLOBULIN (test code = 2.4 g/dL(calc) 65912-3) ALBUMIN/GLOBULIN RATIO 1.8 (calc) (test code = 1759-0) BILIRUBIN, TOTAL (test 0.3 mg/dL code = 1975-2) ALKALINE PHOSPHATASE 72 U/L (test code = 6768-6) AST (test code = 13 U/L 1920-8) ALT (test code = 9 U/L 1742-6) [id number] 00:00:00 Test Item Value Reference Range Interpretation Comments TSH (test code = 3016-3) 2.79 mIU/L LIPID [id number] 00:00:00 Test Item Value Reference Range Interpretation Comments CHOLESTEROL, TOTAL (test code 212 mg/dL = 2093-3) HDL CHOLESTEROL (test code = 42 mg/dL 2085-9) TRIGLYCERIDES (test code = 380 mg/dL 2571-8) LDL-CHOLESTEROL (test code = 116 mg/dL(calc) 25406-3) CHOL/HDLC RATIO (test code = 5.0 (calc) 9830-1) NON HDL CHOLESTEROL (test 170 mg/dL(calc) code = 42717-0) CBC (INCLUDES DIFF/PLT)2019-03-07 00:00:00 Test Item Value Reference Range Interpretation Comments WHITE BLOOD CELL COUNT (test 5.7 Thousand/uL code = 6690-2) RED BLOOD CELL COUNT (test 4.50 Million/uL code = 789-8) HEMOGLOBIN (test code = 13.0 g/dL 718-7) HEMATOCRIT (test code = 39.1 % 4544-3) MCV (test code = 787-2) 86.9 fL MCH (test code = 785-6) 28.9 pg MCHC (test code = 786-4) 33.2 g/dL RDW (test code = 788-0) 13.2 % PLATELET COUNT (test code = 222 Thousand/uL 777-3) MPV (test code = 776-5) 9.7 fL ABSOLUTE NEUTROPHILS (test 3198 cells/uL code = 751-8) ABSOLUTE BAND NEUTROPHILS DNR cells/uL (test code = 56344-4) ABSOLUTE METAMYELOCYTES (test DNR cells/uL code = 79763-2) ABSOLUTE MYELOCYTES (test DNR cells/uL code = 83023-6) ABSOLUTE PROMYELOCYTES (test DNR cells/uL code = 76261-3) ABSOLUTE LYMPHOCYTES (test 2058 cells/uL code = 731-0) ABSOLUTE MONOCYTES (test code 336 cells/uL = 742-7) ABSOLUTE EOSINOPHILS (test 80 cells/uL code = 711-2) ABSOLUTE BASOPHILS (test code 29 cells/uL = 704-7) ABSOLUTE BLASTS (test code = DNR cells/uL 15461-2) ABSOLUTE NUCLEATED RBC (test DNR cells/uL code = 90099-3) NEUTROPHILS (test code = 56.1 % 770-8) BAND NEUTROPHILS (test code = DNR % 764-1) METAMYELOCYTES (test code = DNR % 740-1) MYELOCYTES (test code = DNR % 749-2) PROMYELOCYTES (test code = DNR % 783-1) LYMPHOCYTES (test code = 36.1 % 736-9) REACTIVE LYMPHOCYTES (test DNR % code = 16373-5) MONOCYTES (test code = 5.9 % 5905-5) EOSINOPHILS (test code = 1.4 % 713-8) BASOPHILS (test code = 706-2) 0.5 % BLASTS (test code = 709-6) DNR % NUCLEATED RBC (test code = DNR /100WBC 47888-5) COMMENT(S) (test code = DNR 8251-1) HEMOGLOBIN [id number] 00:00:00 Test Item Value Reference Range Interpretation Comments HEMOGLOBIN A1c (test code = 6.0 [facility] COMPREHENSIVE METABOLIC [id number] 00:00:00 Test Item Value Reference Range Interpretation Comments GLUCOSE (test code = 114 mg/dL 2345-7) UREA NITROGEN (BUN) 14 mg/dL (test code = 3094-0) CREATININE (test code = 0.59 mg/dL 2160-0) eGFR NON-AFR. GUINEAN 101 mL/min/1.73m2 (test code = 67039-6) eGFR 117 mL/min/1.73m2 (test code = 81885-0) BUN/CREATININE RATIO NOT APPLICABLE (calc) (test code = 3097-3) SODIUM (test code = 137 mmol/L 2951-2) POTASSIUM (test code = 3.8 mmol/L 2823-3) CHLORIDE (test code = 106 mmol/L 2075-0) CARBON DIOXIDE (test 20 mmol/L code = 8-9) CALCIUM (test code = 9.8 mg/dL 86602-6) PROTEIN, TOTAL (test 6.6 g/dL code = 2885-2) ALBUMIN (test code = 4.2 g/dL 1751-7) GLOBULIN (test code = 2.4 g/dL(calc) 60780-3) ALBUMIN/GLOBULIN RATIO 1.8 (calc) (test code = 1759-0) BILIRUBIN, TOTAL (test 0.3 mg/dL code = 1975-2) ALKALINE PHOSPHATASE 72 U/L (test code = 6768-6) AST (test code = 13 U/L 1920-8) ALT (test code = 9 U/L 1742-6) [id number] 00:00:00 Test Item Value Reference Range Interpretation Comments TSH (test code = 3016-3) 2.79 mIU/L LIPID [id number] 00:00:00 Test Item Value Reference Range Interpretation Comments CHOLESTEROL, TOTAL (test code 212 mg/dL = 2093-3) HDL CHOLESTEROL (test code = 42 mg/dL 5-9) TRIGLYCERIDES (test code = 380 mg/dL 2571-8) LDL-CHOLESTEROL (test code = 116 mg/dL(calc) 42978-4) CHOL/HDLC RATIO (test code = 5.0 (calc) 9830-1) NON HDL CHOLESTEROL (test 170 mg/dL(calc) code = 57811-1) CBC (INCLUDES DIFF/PLT)2019-03-07 00:00:00 Test Item Value Reference Range Interpretation Comments WHITE BLOOD CELL COUNT (test 5.7 Thousand/uL code = 6690-2) RED BLOOD CELL COUNT (test 4.50 Million/uL code = 789-8) HEMOGLOBIN (test code = 13.0 g/dL 718-7) HEMATOCRIT (test code = 39.1 % 4544-3) MCV (test code = 787-2) 86.9 fL MCH (test code = 785-6) 28.9 pg MCHC (test code = 786-4) 33.2 g/dL RDW (test code = 788-0) 13.2 % PLATELET COUNT (test code = 222 Thousand/uL 777-3) MPV (test code = 776-5) 9.7 fL ABSOLUTE NEUTROPHILS (test 3198 cells/uL code = 751-8) ABSOLUTE BAND NEUTROPHILS DNR cells/uL (test code = 09212-8) ABSOLUTE METAMYELOCYTES (test DNR cells/uL code = 24096-9) ABSOLUTE MYELOCYTES (test DNR cells/uL code = 34562-9) ABSOLUTE PROMYELOCYTES (test DNR cells/uL code = 28954-4) ABSOLUTE LYMPHOCYTES (test 2058 cells/uL code = 731-0) ABSOLUTE MONOCYTES (test code 336 cells/uL = 742-7) ABSOLUTE EOSINOPHILS (test 80 cells/uL code = 711-2) ABSOLUTE BASOPHILS (test code 29 cells/uL = 704-7) ABSOLUTE BLASTS (test code = DNR cells/uL 18645-2) ABSOLUTE NUCLEATED RBC (test DNR cells/uL code = 40666-7) NEUTROPHILS (test code = 56.1 % 770-8) BAND NEUTROPHILS (test code = DNR % 764-1) METAMYELOCYTES (test code = DNR % 740-1) MYELOCYTES (test code = DNR % 749-2) PROMYELOCYTES (test code = DNR % 783-1) LYMPHOCYTES (test code = 36.1 % 736-9) REACTIVE LYMPHOCYTES (test DNR % code = 15086-8) MONOCYTES (test code = 5.9 % 5905-5) EOSINOPHILS (test code = 1.4 % 713-8) BASOPHILS (test code = 706-2) 0.5 % BLASTS (test code = 709-6) DNR % NUCLEATED RBC (test code = DNR /100WBC 06272-0) COMMENT(S) (test code = DNR 8251-1) HEMOGLOBIN [id number] 00:00:00 Test Item Value Reference Range Interpretation Comments HEMOGLOBIN A1c (test code = 6.0 %oftotalHgb 4548-4) URINALYSIS W/REFLEX [id number] 00:00:00 Test Item Value Reference Range Interpretation Comments COLOR (test code = 1501) YELLOW APPEARANCE (test code = 1502) CLOUDY SPECIFIC GRAVITY (test code = 1.013 1503) LEUKOCYTE ESTERASE (test code = NEGATIVE 1504) NITRITE (test code = 1505) NEGATIVE pH (test code = 1506) 7.0 PROTEIN (test code = 1507) NEGATIVE GLUCOSE (test code = 1508) NEGATIVE KETONES (test code = 1509) NEGATIVE UROBILINOGEN (test code = 1510) <2.0 MG/DL BILIRUBIN (test code = 1511) NEGATIVE OCCULT BLOOD (test code = 1512) 1+ WHITE BLOOD CELLS (test code = 0-5 /HPF 1513) RED BLOOD CELLS (test code = 5-10 /HPF 1514) EPITHELIAL CELLS (test code = 0-5 /HPF 66507) CRYSTALS (test code = 1516) (NOTE) /HPF CBC W/AUTO [id number] 00:00:00 Test Item Value Reference Range Interpretation Comments WBC (test code = 1001) 6.6 K/UL RBC (test code = 1002) 4.52 M/UL HEMOGLOBIN (test code = 1003) 13.1 G/DL HEMATOCRIT (test code = 1004) 37.7 % MCV (test code = 1005) 83.4 fL MCH (test code = 1006) 29.0 PG MCHC (test code = 1007) 34.7 G/DL RDW (test code = 1038) 12.4 % NEUTROPHILS (test code = 1008) 53.2 % LYMPHOCYTES (test code = 1010) 36.6 % MONOCYTES (test code = 1011) 7.3 % EOSINOPHILS (test code = 1012) 2.4 % BASOPHILS (test code = 1013) 0.5 % PLATELET COUNT (test code = 1015) 252 K/UL CBC W/AUTO [id number] 00:00:00 Test Item Value Reference Range Interpretation Comments WBC (test code = 1001) 6.6 K/UL RBC (test code = 1002) 4.52 M/UL HEMOGLOBIN (test code = 1003) 13.1 G/DL HEMATOCRIT (test code = 1004) 37.7 % MCV (test code = 1005) 83.4 fL MCH (test code = 1006) 29.0 PG MCHC (test code = 1007) 34.7 G/DL RDW (test code = 1038) 12.4 % NEUTROPHILS (test code = 1008) 53.2 % LYMPHOCYTES (test code = 1010) 36.6 % MONOCYTES (test code = 1011) 7.3 % EOSINOPHILS (test code = 1012) 2.4 % BASOPHILS (test code = 1013) 0.5 % PLATELET COUNT (test code = 1015) 252 K/UL URINALYSIS W/REFLEX [id number] 00:00:00 Test Item Value Reference Range Interpretation Comments COLOR (test code = 1501) YELLOW APPEARANCE (test code = 1502) CLOUDY SPECIFIC GRAVITY (test code = 1.013 1503) LEUKOCYTE ESTERASE (test code = NEGATIVE 1504) NITRITE (test code = 1505) NEGATIVE pH (test code = 1506) 7.0 PROTEIN (test code = 1507) NEGATIVE GLUCOSE (test code = 1508) NEGATIVE KETONES (test code = 1509) NEGATIVE UROBILINOGEN (test code = 1510) <2.0 MG/DL BILIRUBIN (test code = 1511) NEGATIVE OCCULT BLOOD (test code = 1512) 1+ WHITE BLOOD CELLS (test code = 0-5 /HPF 1513) RED BLOOD CELLS (test code = 5-10 /HPF 1514) EPITHELIAL CELLS (test code = 0-5 /HPF 27446) CRYSTALS (test code = 1516) (NOTE) /HPF URINALYSIS W/REFLEX [id number] 00:00:00 Test Item Value Reference Range Interpretation Comments COLOR (test code = 1501) YELLOW APPEARANCE (test code = 1502) CLOUDY SPECIFIC GRAVITY (test code = 1.013 1503) LEUKOCYTE ESTERASE (test code = NEGATIVE 1504) NITRITE (test code = 1505) NEGATIVE pH (test code = 1506) 7.0 PROTEIN (test code = 1507) NEGATIVE GLUCOSE (test code = 1508) NEGATIVE KETONES (test code = 1509) NEGATIVE UROBILINOGEN (test code = 1510) <2.0 MG/DL BILIRUBIN (test code = 1511) NEGATIVE OCCULT BLOOD (test code = 1512) 1+ WHITE BLOOD CELLS (test code = 0-5 /HPF 1513) RED BLOOD CELLS (test code = 5-10 /HPF 1514) EPITHELIAL CELLS (test code = 0-5 /HPF 27520) CRYSTALS (test code = 1516) (NOTE) /HPF CBC W/AUTO [id number] 00:00:00 Test Item Value Reference Range Interpretation Comments WBC (test code = 1001) 6.6 K/UL RBC (test code = 1002) 4.52 M/UL HEMOGLOBIN (test code = 1003) 13.1 G/DL HEMATOCRIT (test code = 1004) 37.7 % MCV (test code = 1005) 83.4 fL MCH (test code = 1006) 29.0 PG MCHC (test code = 1007) 34.7 G/DL RDW (test code = 1038) 12.4 % NEUTROPHILS (test code = 1008) 53.2 % LYMPHOCYTES (test code = 1010) 36.6 % MONOCYTES (test code = 1011) 7.3 % EOSINOPHILS (test code = 1012) 2.4 % BASOPHILS (test code = 1013) 0.5 % PLATELET COUNT (test code = 1015) 252 K/UL CBC W/AUTO [id number] 00:00:00 Test Item Value Reference Range Interpretation Comments WBC (test code = 1001) 6.6 K/UL RBC (test code = 1002) 4.52 M/UL HEMOGLOBIN (test code = 1003) 13.1 G/DL HEMATOCRIT (test code = 1004) 37.7 % MCV (test code = 1005) 83.4 fL MCH (test code = 1006) 29.0 PG MCHC (test code = 1007) 34.7 G/DL RDW (test code = 1038) 12.4 % NEUTROPHILS (test code = 1008) 53.2 % LYMPHOCYTES (test code = 1010) 36.6 % MONOCYTES (test code = 1011) 7.3 % EOSINOPHILS (test code = 1012) 2.4 % BASOPHILS (test code = 1013) 0.5 % PLATELET COUNT (test code = 1015) 252 K/UL CBC W/AUTO [id number] 00:00:00 Test Item Value Reference Range Interpretation Comments WBC (test code = 1001) 6.6 K/UL RBC (test code = 1002) 4.52 M/UL HEMOGLOBIN (test code = 1003) 13.1 G/DL HEMATOCRIT (test code = 1004) 37.7 % MCV (test code = 1005) 83.4 fL MCH (test code = 1006) 29.0 PG MCHC (test code = 1007) 34.7 G/DL RDW (test code = 1038) 12.4 % NEUTROPHILS (test code = 1008) 53.2 % LYMPHOCYTES (test code = 1010) 36.6 % MONOCYTES (test code = 1011) 7.3 % EOSINOPHILS (test code = 1012) 2.4 % BASOPHILS (test code = 1013) 0.5 % PLATELET COUNT (test code = 1015) 252 K/UL CREATINE KINASE, [id number] 00:00:00 Test Item Value Reference Range Interpretation Comments CREATINE KINASE, TOTAL (test code = 110 U/L 2157-6) URINALYSIS [id number] 00:00:00 Test Item Value Reference Range Interpretation Comments COLOR (test code = 5778-6) TNP APPEARANCE (test code = 5767-9) DNR SPECIFIC GRAVITY (test code = DNR 5811-5) PH (test code = 5803-2) DNR GLUCOSE (test code = 88944-7) DNR REDUCING SUBSTANCES (test code = DNR % 16213-5) BILIRUBIN (test code = 5770-3) DNR KETONES (test code = 2514-8) DNR OCCULT BLOOD (test code = 5794-3) DNR PROTEIN (test code = 80848-1) DNR NITRITE (test code = 5802-4) DNR LEUKOCYTE ESTERASE (test code = DNR 5799-2) WBC (test code = 5821-4) DNR /HPF RBC (test code = 33122-9) DNR /HPF SQUAMOUS EPITHELIAL CELLS (test code DNR /HPF = 90737-2) TRANSITIONAL EPITHELIAL CELLS (test DNR /HPF code = 86491-5) RENAL EPITHELIAL CELLS (test code = DNR /HPF 87635-6) BACTERIA (test code = 5769-5) DNR /HPF CALCIUM OXALATE CRYSTALS (test code DNR /HPF = 25805-8) TRIPLE PHOSPHATE CRYSTALS (test code DNR /HPF = 74696-2) URIC ACID CRYSTALS (test code = DNR /HPF 34377-7) AMORPHOUS SEDIMENT (test code = DNR /HPF 8246-1) CRYSTALS (test code = 13199-8) DNR /HPF HYALINE CAST (test code = 5796-8) DNR /LPF GRANULAR CAST (test code = 5793-5) DNR /LPF CASTS (test code = 9842-6) DNR /LPF YEAST (test code = 5822-2) DNR /HPF COMMENTS (test code = 8251-1) DNR CBC (INCLUDES DIFF/PLT)[id number] 00:00:00 Test Item Value Reference Range Interpretation Comments WHITE BLOOD CELL COUNT (test 7.3 Thousand/uL code = 6690-2) RED BLOOD CELL COUNT (test 4.47 Million/uL code = 789-8) HEMOGLOBIN (test code = 12.9 g/dL 718-7) HEMATOCRIT (test code = 38.6 % 4544-3) MCV (test code = 787-2) 86.4 fL MCH (test code = 785-6) 28.9 pg MCHC (test code = 786-4) 33.4 g/dL RDW (test code = 788-0) 12.8 % PLATELET COUNT (test code = 256 Thousand/uL 777-3) MPV (test code = 776-5) 10.2 fL ABSOLUTE NEUTROPHILS (test 4475 cells/uL code = 751-8) ABSOLUTE BAND NEUTROPHILS DNR cells/uL (test code = 39366-7) ABSOLUTE METAMYELOCYTES (test DNR cells/uL code = 70631-3) ABSOLUTE MYELOCYTES (test DNR cells/uL code = 24708-5) ABSOLUTE PROMYELOCYTES (test DNR cells/uL code = 57182-2) ABSOLUTE LYMPHOCYTES (test 2190 cells/uL code = 731-0) ABSOLUTE MONOCYTES (test code 467 cells/uL = 742-7) ABSOLUTE EOSINOPHILS (test 139 cells/uL code = 711-2) ABSOLUTE BASOPHILS (test code 29 cells/uL = 704-7) ABSOLUTE BLASTS (test code = DNR cells/uL 01215-3) ABSOLUTE NUCLEATED RBC (test DNR cells/uL code = 73714-3) NEUTROPHILS (test code = 61.3 % 770-8) BAND NEUTROPHILS (test code = DNR % 764-1) METAMYELOCYTES (test code = DNR % 740-1) MYELOCYTES (test code = DNR % 749-2) PROMYELOCYTES (test code = DNR % 783-1) LYMPHOCYTES (test code = 30.0 % 736-9) REACTIVE LYMPHOCYTES (test DNR % code = 33487-5) MONOCYTES (test code = 6.4 % 5905-5) EOSINOPHILS (test code = 1.9 % 713-8) BASOPHILS (test code = 706-2) 0.4 % BLASTS (test code = 709-6) DNR % NUCLEATED RBC (test code = DNR /100WBC 99090-7) COMMENT(S) (test code = DNR 8251-1) [id number] 00:00:00 Test Item Value Reference Range Interpretation Comments TSH (test code = 3016-3) 1.97 mIU/L CREATINE KINASE, [id number] 00:00:00 Test Item Value Reference Range Interpretation Comments CREATINE KINASE, TOTAL (test code = 110 U/L 2157-6) URINALYSIS [id number] 00:00:00 Test Item Value Reference Range Interpretation Comments COLOR (test code = 5778-6) TNP APPEARANCE (test code = 5767-9) DNR SPECIFIC GRAVITY (test code = DNR 5811-5) PH (test code = 5803-2) DNR GLUCOSE (test code = 22296-7) DNR REDUCING SUBSTANCES (test code = DNR % 34119-4) BILIRUBIN (test code = 5770-3) DNR KETONES (test code = 2514-8) DNR OCCULT BLOOD (test code = 5794-3) DNR PROTEIN (test code = 97218-4) DNR NITRITE (test code = 5802-4) DNR LEUKOCYTE ESTERASE (test code = DNR 5799-2) WBC (test code = 5821-4) DNR /HPF RBC (test code = 40156-8) DNR /HPF SQUAMOUS EPITHELIAL CELLS (test code DNR /HPF = 85748-3) TRANSITIONAL EPITHELIAL CELLS (test DNR /HPF code = 47750-6) RENAL EPITHELIAL CELLS (test code = DNR /HPF 81650-9) BACTERIA (test code = 5769-5) DNR /HPF CALCIUM OXALATE CRYSTALS (test code DNR /HPF = 52459-3) TRIPLE PHOSPHATE CRYSTALS (test code DNR /HPF = 20343-0) URIC ACID CRYSTALS (test code = DNR /HPF 74194-8) AMORPHOUS SEDIMENT (test code = DNR /HPF 8246-1) CRYSTALS (test code = 37275-4) DNR /HPF HYALINE CAST (test code = 5796-8) DNR /LPF GRANULAR CAST (test code = 5793-5) DNR /LPF CASTS (test code = 9842-6) DNR /LPF YEAST (test code = 5822-2) DNR /HPF COMMENTS (test code = 8251-1) DNR CBC (INCLUDES DIFF/PLT)2018-08-21 00:00:00 Test Item Value Reference Range Interpretation Comments WHITE BLOOD CELL COUNT (test 7.3 Thousand/uL code = 6690-2) RED BLOOD CELL COUNT (test 4.47 Million/uL code = 789-8) HEMOGLOBIN (test code = 12.9 g/dL 718-7) HEMATOCRIT (test code = 38.6 % 4544-3) MCV (test code = 787-2) 86.4 fL MCH (test code = 785-6) 28.9 pg MCHC (test code = 786-4) 33.4 g/dL RDW (test code = 788-0) 12.8 % PLATELET COUNT (test code = 256 Thousand/uL 777-3) MPV (test code = 776-5) 10.2 fL ABSOLUTE NEUTROPHILS (test 4475 cells/uL code = 751-8) ABSOLUTE BAND NEUTROPHILS DNR cells/uL (test code = 58953-8) ABSOLUTE METAMYELOCYTES (test DNR cells/uL code = 03219-9) ABSOLUTE MYELOCYTES (test DNR cells/uL code = 17164-5) ABSOLUTE PROMYELOCYTES (test DNR cells/uL code = 47266-7) ABSOLUTE LYMPHOCYTES (test 2190 cells/uL code = 731-0) ABSOLUTE MONOCYTES (test code 467 cells/uL = 742-7) ABSOLUTE EOSINOPHILS (test 139 cells/uL code = 711-2) ABSOLUTE BASOPHILS (test code 29 cells/uL = 704-7) ABSOLUTE BLASTS (test code = DNR cells/uL 90669-6) ABSOLUTE NUCLEATED RBC (test DNR cells/uL code = 13281-6) NEUTROPHILS (test code = 61.3 % 770-8) BAND NEUTROPHILS (test code = DNR % 764-1) METAMYELOCYTES (test code = DNR % 740-1) MYELOCYTES (test code = DNR % 749-2) PROMYELOCYTES (test code = DNR % 783-1) LYMPHOCYTES (test code = 30.0 % 736-9) REACTIVE LYMPHOCYTES (test DNR % code = 33719-0) MONOCYTES (test code = 6.4 % 5905-5) EOSINOPHILS (test code = 1.9 % 713-8) BASOPHILS (test code = 706-2) 0.4 % BLASTS (test code = 709-6) DNR % NUCLEATED RBC (test code = DNR /100WBC 52191-4) COMMENT(S) (test code = DNR 8251-1) [id number] 00:00:00 Test Item Value Reference Range Interpretation Comments TSH (test code = 3016-3) 1.97 mIU/L COMPREHENSIVE METABOLIC [id number] 00:00:00 Test Item Value Reference Range Interpretation Comments GLUCOSE (test code = 2217) 94 MG/DL BUN (test code = 2208) 14 MG/DL CREATININE (test code = 2214) 0.58 MG/DL eGFR AMER. (test code 119 ML/MIN/1.73 = 29618) eGFR NON- AMER. (test 102 ML/MIN/1.73 code = 49061) CALC BUN/CREAT (test code = 24 RATIO 2235) SODIUM (test code = 2231) 144 MEQ/L POTASSIUM (test code = 2228) 4.1 MEQ/L CHLORIDE (test code = 2215) 105 MEQ/L CARBON DIOXIDE (test code = 26 MEQ/L 2205) CALCIUM (test code = 2209) 9.4 MG/DL PROTEIN, TOTAL (test code = 6.5 G/DL 2228) ALBUMIN (test code = 2201) 4.4 G/DL CALC GLOBULIN (test code = 2.1 G/DL 2240) CALC A/G RATIO (test code = 2.1 RATIO 2234) BILIRUBIN, TOTAL (test code = 0.3 MG/DL 2206) ALKALINE PHOSPHATASE (test 55 U/L code = 2204) AST (test code = 2218) 15 U/L ALT (test code = 2219) 10 U/L CBC W/AUTO [id number] 00:00:00 Test Item Value Reference Range Interpretation Comments WBC (test code = 1001) 6.3 K/UL RBC (test code = 1002) 4.49 M/UL HEMOGLOBIN (test code = 1003) 12.9 G/DL HEMATOCRIT (test code = 1004) 37.3 % MCV (test code = 1005) 83.1 fL MCH (test code = 1006) 28.7 PG MCHC (test code = 1007) 34.6 G/DL RDW (test code = 1038) 12.7 % NEUTROPHILS (test code = 1008) 54.1 % LYMPHOCYTES (test code = 1010) 37.3 % MONOCYTES (test code = 1011) 6.2 % EOSINOPHILS (test code = 1012) 1.9 % BASOPHILS (test code = 1013) 0.5 % PLATELET COUNT (test code = 1015) 254 K/UL CBC W/AUTO [id number] 00:00:00 Test Item Value Reference Range Interpretation Comments WBC (test code = 1001) 6.3 K/UL RBC (test code = 1002) 4.49 M/UL HEMOGLOBIN (test code = 1003) 12.9 G/DL HEMATOCRIT (test code = 1004) 37.3 % MCV (test code = 1005) 83.1 fL MCH (test code = 1006) 28.7 PG MCHC (test code = 1007) 34.6 G/DL RDW (test code = 1038) 12.7 % NEUTROPHILS (test code = 1008) 54.1 % LYMPHOCYTES (test code = 1010) 37.3 % MONOCYTES (test code = 1011) 6.2 % EOSINOPHILS (test code = 1012) 1.9 % BASOPHILS (test code = 1013) 0.5 % PLATELET COUNT (test code = 1015) 254 K/UL CBC W/AUTO [id number] 00:00:00 Test Item Value Reference Range Interpretation Comments WBC (test code = 1001) 6.3 K/UL RBC (test code = 1002) 4.49 M/UL HEMOGLOBIN (test code = 1003) 12.9 G/DL HEMATOCRIT (test code = 1004) 37.3 % MCV (test code = 1005) 83.1 fL MCH (test code = 1006) 28.7 PG MCHC (test code = 1007) 34.6 G/DL RDW (test code = 1038) 12.7 % NEUTROPHILS (test code = 1008) 54.1 % LYMPHOCYTES (test code = 1010) 37.3 % MONOCYTES (test code = 1011) 6.2 % EOSINOPHILS (test code = 1012) 1.9 % BASOPHILS (test code = 1013) 0.5 % PLATELET COUNT (test code = 1015) 254 K/UL [id number] 00:00:00 Test Item Value Reference Range Interpretation Comments TSH, THIRD GENERATION (test code 3.160 UIU/ML = 2821) [id number] 00:00:00 Test Item Value Reference Range Interpretation Comments TSH, THIRD GENERATION (test code 3.160 UIU/ML = 2821) [id number] 00:00:00 Test Item Value Reference Range Interpretation Comments TSH, THIRD GENERATION (test code 3.160 UIU/ML = 2821) URINALYSIS (CULTURE IF INDICATED)2018-07-08 00:00:00 Test Item Value Reference Range Interpretation Comments COLOR (test code = 1501) YELLOW APPEARANCE (test code = 1502) CLEAR SPECIFIC GRAVITY (test code = 1.021 1503) LEUKOCYTE ESTERASE (test code = NEGATIVE 1504) NITRITE (test code = 1505) NEGATIVE pH (test code = 1506) 6.0 PROTEIN (test code = 1507) NEGATIVE GLUCOSE (test code = 1508) NEGATIVE KETONES (test code = 1509) NEGATIVE UROBILINOGEN (test code = 1510) <2.0 MG/DL BILIRUBIN (test code = 1511) NEGATIVE OCCULT BLOOD (test code = 1512) 1+ WHITE BLOOD CELLS (test code = 0-5 /HPF 1513) RED BLOOD CELLS (test code = 1514) >50 /HPF EPITHELIAL CELLS (test code = 0-5 /HPF 43787) URINALYSIS (CULTURE IF INDICATED)2018-07-08 00:00:00 Test Item Value Reference Range Interpretation Comments COLOR (test code = 1501) YELLOW APPEARANCE (test code = 1502) CLEAR SPECIFIC GRAVITY (test code = 1.021 1503) LEUKOCYTE ESTERASE (test code = NEGATIVE 1504) NITRITE (test code = 1505) NEGATIVE pH (test code = 1506) 6.0 PROTEIN (test code = 1507) NEGATIVE GLUCOSE (test code = 1508) NEGATIVE KETONES (test code = 1509) NEGATIVE UROBILINOGEN (test code = 1510) <2.0 MG/DL BILIRUBIN (test code = 1511) NEGATIVE OCCULT BLOOD (test code = 1512) 1+ WHITE BLOOD CELLS (test code = 0-5 /HPF 1513) RED BLOOD CELLS (test code = 1514) >50 /HPF EPITHELIAL CELLS (test code = 0-5 /HPF 53123) LIPID [id number] 00:00:00 Test Item Value Reference Range Interpretation Comments CHOLESTEROL (test code = 2210) 163 MG/DL TRIGLYCERIDES (test code = 2232) 138 MG/DL HDL CHOLESTEROL (test code = 2220) 50 MG/DL CALC LDL CHOL (test code = 2237) 85 MG/DL RISK RATIO LDL/HDL (test code = 1.71 RATIO 2238) COMPREHENSIVE METABOLIC [id number] 00:00:00 Test Item Value Reference Range Interpretation Comments GLUCOSE (test code = 2217) 94 MG/DL BUN (test code = 2208) 14 MG/DL CREATININE (test code = 2214) 0.58 MG/DL eGFR AMER. (test code 119 ML/MIN/1.73 = 87684) eGFR NON- AMER. (test 102 ML/MIN/1.73 code = 07957) CALC BUN/CREAT (test code = 24 RATIO 2235) SODIUM (test code = 2231) 144 MEQ/L POTASSIUM (test code = 2228) 4.1 MEQ/L CHLORIDE (test code = 2215) 105 MEQ/L CARBON DIOXIDE (test code = 26 MEQ/L 220) CALCIUM (test code = 2209) 9.4 MG/DL PROTEIN, TOTAL (test code = 6.5 G/DL 222) ALBUMIN (test code = 2201) 4.4 G/DL CALC GLOBULIN (test code = 2.1 G/DL 2240) CALC A/G RATIO (test code = 2.1 RATIO 2234) BILIRUBIN, TOTAL (test code = 0.3 MG/DL 2206) ALKALINE PHOSPHATASE (test 55 U/L code = 2204) AST (test code = 2218) 15 U/L ALT (test code = 2219) 10 U/L CBC W/AUTO [id number] 00:00:00 Test Item Value Reference Range Interpretation Comments WBC (test code = 1001) 6.3 K/UL RBC (test code = 1002) 4.49 M/UL HEMOGLOBIN (test code = 1003) 12.9 G/DL HEMATOCRIT (test code = 1004) 37.3 % MCV (test code = 1005) 83.1 fL MCH (test code = 1006) 28.7 PG MCHC (test code = 1007) 34.6 G/DL RDW (test code = 1038) 12.7 % NEUTROPHILS (test code = 1008) 54.1 % LYMPHOCYTES (test code = 1010) 37.3 % MONOCYTES (test code = 1011) 6.2 % EOSINOPHILS (test code = 1012) 1.9 % BASOPHILS (test code = 1013) 0.5 % PLATELET COUNT (test code = 1015) 254 K/UL CBC W/AUTO [id number] 00:00:00 Test Item Value Reference Range Interpretation Comments WBC (test code = 1001) 6.3 K/UL RBC (test code = 1002) 4.49 M/UL HEMOGLOBIN (test code = 1003) 12.9 G/DL HEMATOCRIT (test code = 1004) 37.3 % MCV (test code = 1005) 83.1 fL MCH (test code = 1006) 28.7 PG MCHC (test code = 1007) 34.6 G/DL RDW (test code = 1038) 12.7 % NEUTROPHILS (test code = 1008) 54.1 % LYMPHOCYTES (test code = 1010) 37.3 % MONOCYTES (test code = 1011) 6.2 % EOSINOPHILS (test code = 1012) 1.9 % BASOPHILS (test code = 1013) 0.5 % PLATELET COUNT (test code = 1015) 254 K/UL [id number] 00:00:00 Test Item Value Reference Range Interpretation Comments TSH, THIRD GENERATION (test code 3.160 UIU/ML = 2821) [id number] 00:00:00 Test Item Value Reference Range Interpretation Comments TSH, THIRD GENERATION (test code 3.160 UIU/ML = 2821) URINALYSIS (CULTURE IF INDICATED)2018-07-08 00:00:00 Test Item Value Reference Range Interpretation Comments COLOR (test code = 1501) YELLOW APPEARANCE (test code = 1502) CLEAR SPECIFIC GRAVITY (test code = 1.021 1503) LEUKOCYTE ESTERASE (test code = NEGATIVE 1504) NITRITE (test code = 1505) NEGATIVE pH (test code = 1506) 6.0 PROTEIN (test code = 1507) NEGATIVE GLUCOSE (test code = 1508) NEGATIVE KETONES (test code = 1509) NEGATIVE UROBILINOGEN (test code = 1510) <2.0 MG/DL BILIRUBIN (test code = 1511) NEGATIVE OCCULT BLOOD (test code = 1512) 1+ WHITE BLOOD CELLS (test code = 0-5 /HPF 1513) RED BLOOD CELLS (test code = 1514) >50 /HPF EPITHELIAL CELLS (test code = 0-5 /HPF 24516) LIPID [id number] 00:00:00 Test Item Value Reference Range Interpretation Comments CHOLESTEROL (test code = 2210) 163 MG/DL TRIGLYCERIDES (test code = 2232) 138 MG/DL HDL CHOLESTEROL (test code = 2220) 50 MG/DL CALC LDL CHOL (test code = 2237) 85 MG/DL RISK RATIO LDL/HDL (test code = 1.71 RATIO 2238) LIPID [id number] 00:00:00 Test Item Value Reference Range Interpretation Comments CHOLESTEROL (test code = 2210) 163 MG/DL TRIGLYCERIDES (test code = 2232) 138 MG/DL HDL CHOLESTEROL (test code = 2220) 50 MG/DL CALC LDL CHOL (test code = 2237) 85 MG/DL RISK RATIO LDL/HDL (test code = 1.71 RATIO 2238) COMPREHENSIVE METABOLIC [id number] 00:00:00 Test Item Value Reference Range Interpretation Comments GLUCOSE (test code = 2217) 94 MG/DL BUN (test code = 2208) 14 MG/DL CREATININE (test code = 2214) 0.58 MG/DL eGFR AMER. (test code 119 ML/MIN/1.73 = 99268) eGFR NON- AMER. (test 102 ML/MIN/1.73 code = 19916) CALC BUN/CREAT (test code = 24 RATIO 2235) SODIUM (test code = 2231) 144 MEQ/L POTASSIUM (test code = 2228) 4.1 MEQ/L CHLORIDE (test code = 2215) 105 MEQ/L CARBON DIOXIDE (test code = 26 MEQ/L 2205) CALCIUM (test code = 2209) 9.4 MG/DL PROTEIN, TOTAL (test code = 6.5 G/DL 2228) ALBUMIN (test code = 2201) 4.4 G/DL CALC GLOBULIN (test code = 2.1 G/DL 2239) CALC A/G RATIO (test code = 2.1 RATIO 223) BILIRUBIN, TOTAL (test code = 0.3 MG/DL 2206) ALKALINE PHOSPHATASE (test 55 U/L code = 2204) AST (test code = 2218) 15 U/L ALT (test code = 2219) 10 U/L
[2022-09-10] MEDS ORDERED: DIPHENHYDRAMINE 50 MG/ML VIAL ONE (06:59)
[2022-09-10] MEDS ORDERED: METOCLOPRAMIDE 10 MG/2mL INJ ONE (06:59)
[2022-09-10] MEDS ORDERED: ACETAMINOPHEN 500 MG TAB ONE (07:00)
[2022-09-10] MEDS ORDERED: NA CHLORIDE 0.9% 1,000 ML ONE (07:00)
--- NOTE | 2022-09-10 07:48 | RAD REPORT ---
EXAM DESCRIPTION: CT - Head Brain Wo Cont - 09/10/2022 7:10 am CLINICAL HISTORY: HEADACHE COMPARISON: Head Brain Wo Cont dated 09/18/2018; HEAD BRAIN W O CONTRAST dated 12/06/2009 TECHNIQUE: All CT scans are performed using dose optimization technique as appropriate and may inclu de automated exposure control or mA/KV adjustment according to patient size. FINDINGS: No intracranial hemorrhage, hydrocephalus or extra-axial fluid collection.No areas of brai n edema or evidence of midline shift. 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 The paranasal sinuses and mastoids are clear. The calvarium is intact. IMPRESSION: No acute intracranial abnormality.
--- NOTE | 2022-09-10 07:52 | EDPHYS ---
Physician Documentation [facility] Name: Jo Tena Age: 61 yrs Sex: Female : 1960 Arrival Date: 09/10/2022 Time: 06:16 Bed 6 Private MD: ED Physician Andriy Edwards HPI: 09/10 06:50 This 61 yrs old Female presents to ER via Ambulatory with complaints of rt Headache. 06:50 Patient with prior history of headaches presents to the ED with a left-sided headache rt starting last night. She had another episode yesterday, resolved with Excedrin, however, she did not take any medicines for this current headache. It is left-sided, pulsing in nature. She has associated photophobia, phonophobia. Reports nausea without vomiting. Denies other acute complaints at this time, symptoms are moderate severity, no other aggravating alleviating factors. Patient states that this is different than her typical migraine with regards to location as well as severity.. Historical: - Allergies: 06:33 No Known Allergies; vc1 - Home Meds: 06:33 Unable to obtain [Active]; vc1 - PMHx: 06:33 GERD; High Cholesterol; Hypertension; Diabetes mellitus; vc1 - PSHx: 06:33 None; vc1 - Immunization history:: Adult Immunizations up to date, Client reports receiving the Anthony \T\ Anthony single-dose vaccine. - Social history:: Smoking status: Patient reports the use of cigarette tobacco products, 4 cigs/day. - Family history:: not pertinent. ROS: 06:50 Constitutional: Negative for fever, chills, and weight loss, Neck: Negative for injury, rt pain, and swelling. 06:50 Skin: Negative for injury, rash, and discoloration, Psych: Negative for depression, anxiety, suicide ideation, homicidal ideation, and hallucinations. 06:50 Abdomen/GI: Positive for nausea, Negative for abdominal pain, vomiting. 06:50 Neuro: Positive for headache, Negative for altered mental status. Exam: 06:50 Constitutional: This is a well developed, well nourished patient who is awake, alert, rt and in no acute distress. Head/Face: Normocephalic, atraumatic. ENT: Nares patent. No nasal discharge, no septal abnormalities noted. Tympanic membranes are normal and external auditory canals are clear. Oropharynx with no redness, swelling, or masses, exudates, or evidence of obstruction, uvula midline. Mucous membranes moist. Neck: Trachea midline, no thyromegaly or masses palpated, and no cervical lymphadenopathy. Supple, full range of motion without nuchal rigidity, or vertebral point tenderness. No Meningismus. Chest/axilla: Normal chest wall appearance and motion. Nontender with no deformity. No lesions are appreciated. Cardiovascular: Regular rate and rhythm with a normal S1 and S2. No gallops, murmurs, or rubs. Normal PMI, no JVD. No pulse deficits. Respiratory: Lungs have equal breath sounds bilaterally, clear to auscultation and percussion. No rales, rhonchi or wheezes noted. No increased work of breathing, no retractions or nasal flaring. Skin: Warm, dry with normal turgor. Normal color with no rashes, no lesions, and no evidence of cellulitis. MS/ Extremity: Pulses equal, no cyanosis. Neurovascular intact. Full, normal range of motion. Neuro: Awake and alert, GCS 15, oriented to person, place, time, and situation. Cranial nerves II-XII grossly intact. Motor strength 5/5 in all extremities. Sensory grossly intact. Cerebellar exam normal. Normal gait. Psych: Awake, alert, with orientation to person, place and time. Behavior, mood, and affect are within normal limits. Vital Signs: 06:30 Pulse 53; Resp 14; Temp 97.6; Pulse Ox 98% ; Weight 62.14 kg; Height 5 ft. 4 in. vc1 (162.56 cm); Pain 10/10; 06:36 BP 179 / 103; vc1 06:56 BP 184 / 92; Pulse 53; Resp 16; Pulse Ox 100% on R/A; kd3 08:10 BP 160 / 72; Pulse 61; Resp 16; Pulse Ox 98% on R/A; iw 06:30 Body Mass Index 23.52 (62.14 kg, 162.56 cm) vc1 MDM: 06:47 Patient medically screened. rt 07:11 Transition of care: Care assumed from Lester Medina MD. ms3 07:52 Differential diagnosis: hypertensive headache, tension headache, ICH. Data reviewed: ms3 vital signs, nurses notes, radiologic studies, CT scan, and as a result, I will discharge patient. I considered the following discharge prescriptions or medication management in the emergency department Medications were administered in the Emergency Department. See MAR. Independent interpretation of the following test(s) in the Emergency Department CT Scan: My interpretation is CT head images reviewed by me: No ICH. 07:52 Counseling: I had a detailed discussion with the patient and/or guardian regarding: the ms3 historical points, exam findings, and any diagnostic results supporting the discharge/admit diagnosis, radiology results, the need for outpatient follow up, to return to the emergency department if symptoms worsen or persist or if there are any questions or concerns that arise at home. ED course: Discussed CT imaging with patient. Patient states her symptoms are improved at this time. Patient follow-up Dr. Cates in 2 to 3 days. Patient understands and agrees with plan. All questions were answered. Return precautions discussed include worsening symptoms, or any other concerns. 09/10 06:47 Order name: CT Head Brain wo Cont rt 09/10 07:48 Order name: CT; Complete Time: 07:50 EDMS Administered Medications: 06:58 Drug: Tylenol 1000 mg Route: PO; as6 08:12 Follow up: Response: No adverse reaction iw 07:16 Drug: Reglan (metoCLOPramide) 10 mg Route: IVP; Site: left antecubital; iw 08:12 Follow up: Response: No adverse reaction iw 07:16 Drug: Benadryl (diphenhydrAMINE) 25 mg Route: IVP; Site: left antecubital; iw 08:12 Follow up: Response: No adverse reaction iw 07:16 Drug: NS 0.9% 1000 ml Route: IV; Rate: 1000 ml; Site: left antecubital; iw 08:11 Follow up: IV Status: Infusion continued iw Disposition Summary: 09/10/22 07:51 Discharge Ordered Location: Home ms3 Condition: Stable ms3 Diagnosis - Headache ms3 - Essential (primary) hypertension ms3 Followup: ms3 - With: Urbano Nguyen MD - When: 2 - 3 days - Reason: Recheck today's complaints Discharge Instructions: - Discharge Summary Sheet ms3 - General Headache Without Cause ms3 - Hypertension, Adult ms3 Forms: - Medication Reconciliation Form ms3 - Thank You Letter ms3 - Antibiotic Education ms3 - Prescription Opioid Use ms3 Signatures: Dispatcher [employer] Gabi Hess, MEREDITH RN iw Andriy Edwards, DO HOU ms3 Pk Wall, MEREDITH RN as6 Suzette Ocampo RN RN vc1 Lester Medina MD MD rt
--- NOTE | 2022-09-10 07:52 | ER ---
Nurse's Notes [facility] Name: Jo Tena Age: 61 yrs Sex: Female : 1960 Arrival Date: 09/10/2022 Time: 06:16 Bed 6 Private MD: Diagnosis: Headache;Essential (primary) hypertension Presentation: 09/10 06:30 Chief complaint: Patient states: "I had a headache yesterday but it went away, now it vc1 has come back again.". Coronavirus screen: Vaccine status: Patient reports receiving the 2nd dose of the covid vaccine. Client denies travel out of the [place] in the last 14 days. At this time, the client does not indicate any symptoms associated with coronavirus-19. Ebola Screen: Patient negative for fever greater than or equal to 101.5 degrees Fahrenheit, and additional compatible Ebola Virus Disease symptoms Patient denies exposure to infectious person. Patient denies travel to an Ebola-affected area in the 21 days before illness onset. No symptoms or risks identified at this time. Initial Sepsis Screen: Does the patient meet any 2 criteria? No. Patient's initial sepsis screen is negative. Does the patient have a suspected source of infection? No. Patient's initial sepsis screen is negative. Risk Assessment: Do you want to hurt yourself or someone else? Patient reports no desire to harm self or others. Onset of symptoms was September 09, 2022. 06:30 Method Of Arrival: Ambulatory vc1 06:30 Acuity: DANE 3 vc1 Triage Assessment: 06:34 Headache History: The patient has had previous headaches and this one is different than vc1 previous episodes, and this one is more severe than previous episodes. General: Appears in no apparent distress. uncomfortable, ill, Behavior is calm, cooperative, appropriate for age. Pain: Complains of pain in left parietal area, right parietal area, occipital area, base of the skull, right posterior aspect of neck and left posterior aspect of neck Pain does not radiate. Pain currently is 10 out of 10 on a pain scale. Quality of pain is described as sharp, Pain began suddenly, 1 day ago. Is intermittent, Also complains of sleeplessness. EENT: No deficits noted. Neuro: Level of Consciousness is awake, alert, obeys commands, Oriented to person, place, time, situation, Appropriate for age. Cardiovascular: No deficits noted. Cardiovascular: Chest pain is described as mild. Respiratory: Airway is patent Respiratory effort is even, unlabored, Respiratory pattern is regular, symmetrical. GI: No deficits noted. No signs and/or symptoms were reported involving the gastrointestinal system. : No deficits noted. No signs and/or symptoms were reported regarding the genitourinary system. Derm: No deficits noted. No signs and/or symptoms reported regarding the dermatologic system. Musculoskeletal: No deficits noted. No signs and/or symptoms reported regarding the musculoskeletal system. Historical: - Allergies: 06:33 No Known Allergies; vc1 - Home Meds: 06:33 Unable to obtain [Active]; vc1 - PMHx: 06:33 GERD; High Cholesterol; Hypertension; Diabetes mellitus; vc1 - PSHx: 06:33 None; vc1 - Immunization history:: Adult Immunizations up to date, Client reports receiving the Anthony \\T\\ Anthony single-dose vaccine. - Social history:: Smoking status: Patient reports the use of cigarette tobacco products, 4 cigs/day. - Family history:: not pertinent. Screenin:34 Abuse screen: Denies threats or abuse. Nutritional screening: No deficits noted. vc1 Tuberculosis screening: No symptoms or risk factors identified. 08:11 [facility] ED Fall Risk Assessment (Adult) Score/Fall Risk Level 0 - 2 = Low Risk. iw Assessment: 07:15 General: Appears in no apparent distress. comfortable. Pain: Complains of pain in iw occipital area. Neuro: Level of Consciousness is awake, alert, obeys commands, Oriented to person, place, time, situation, Moves all extremities. Weakness. Cardiovascular: Patient's skin is warm and dry. Respiratory: Respiratory effort is even, unlabored, Respiratory pattern is regular, symmetrical. Derm: Skin is intact, is healthy with good turgor. Musculoskeletal: Range of motion: intact in all extremities. 08:10 Reassessment: Patient appears in no apparent distress at this time. Patient and/or iw family updated on plan of care and expected duration. Pain level reassessed. Patient is alert, oriented x 3, equal unlabored respirations, skin warm/dry/pink. Patient states feeling better. Patient states symptoms have improved. Vital Signs: 06:30 Pulse 53; Resp 14; Temp 97.6; Pulse Ox 98% ; Weight 62.14 kg; Height 5 ft. 4 in. vc1 (162.56 cm); Pain 10/10; 06:36 BP 179 / 103; vc1 06:56 BP 184 / 92; Pulse 53; Resp 16; Pulse Ox 100% on R/A; kd3 08:10 BP 160 / 72; Pulse 61; Resp 16; Pulse Ox 98% on R/A; iw 06:30 Body Mass Index 23.52 (62.14 kg, 162.56 cm) vc1 ED Course: 06:16 Patient arrived in ED. ja2 06:30 Pk Wall, RN is Primary Nurse. as6 06:33 Triage completed. vc1 06:36 Arm band placed on left wrist. vc1 06:37 Patient has correct armband on for positive identification. Bed in low position. Call vc1 light in reach. Pulse ox on. NIBP on. 06:42 Lester Medina MD is Attending Physician. rt 07:00 Inserted saline lock: 20 gauge in left antecubital area, using aseptic technique. kd3 07:11 Attending Physician role handed off by Lester Medina MD ms3 07:11 Andriy Edwards DO is Attending Physician. ms3 07:51 Urbano Nguyen MD is Referral Physician. ms3 08:10 No provider procedures requiring assistance completed. IV discontinued, intact, iw bleeding controlled, No redness/swelling at site. Pressure dressing applied. Administered Medications: 06:58 Drug: Tylenol 1000 mg Route: PO; as6 08:12 Follow up: Response: No adverse reaction iw 07:16 Drug: Reglan (metoCLOPramide) 10 mg Route: IVP; Site: left antecubital; iw 08:12 Follow up: Response: No adverse reaction iw 07:16 Drug: Benadryl (diphenhydrAMINE) 25 mg Route: IVP; Site: left antecubital; iw 08:12 Follow up: Response: No adverse reaction iw 07:16 Drug: NS 0.9% 1000 ml Route: IV; Rate: 1000 ml; Site: left antecubital; iw 08:11 Follow up: IV Status: Infusion continued iw Medication: 06:38 VIS not applicable for this client. vc1 Outcome: 07:51 Discharge ordered by . ms3 08:11 Discharged to home ambulatory. iw 08:11 Condition: good 08:11 Discharge instructions given to patient, Instructed on discharge instructions, follow up and referral plans. Demonstrated understanding of instructions. 08:13 Patient left the ED. iw Signatures: Gabi Yoo, RN RN iw Andriy Edwards DO DO ms3 Barbara Ruiz2 Pk Wall RN RN as6 Ivette Miller RN RN kd3 Suzette Ocampo RN RN vc1 Lester Medina MD MD rt
[2022-09-10 08:21] VITALS: TEMP 97.6
[2022-09-10 08:24] VITALS: BP 160/72; O2SAT 98
== END 2022-09-10 08:13 | disposition home or self-care (01) ==
LOC: ER 06:13
DX: R51.9 Headache, unspecified (principal); I10 Essential (primary) hypertension; Z72.0 Tobacco use
CPT/HCPCS: 96361; 70450; 96375; 96374; 99283; J2765; J1200; J7030